=== PATIENT | male | born 1975 | race Caucasian/White ===

== ENCOUNTER → 2018-03-31 17:16 | Outpatient (CLI) | payer OTHER, SELFPAY ==
[2018-03-31 19:08] LABS: Hemoglobin A1C 11.1 % (0.0-7.0)
== END ==
PROVIDERS: Visit Provider Nurse Practitioner Family
DX: E11.21 Type 2 diabetes mellitus with diabetic nephropathy (principal)
CPT/HCPCS: 36415; 83036

== ENCOUNTER → 2018-07-07 07:58 | Outpatient (CLI) | payer OTHER, SELFPAY ==
--- NOTE | 2018-07-07 07:59 | CT_ITS ---
CT heart w calcium score INDICATION: Family history of heart disease, diabetes ITS.REASON: / ORDERING PHYSICIAN: Marvel Menjivar MD PATIENT AGE: 43 years COMPARISON: None TECHNIQUE: Axial images are obtained without contrast. Sagittal and coronal reformatted images are reviewed as well. All CT scans at the facility use one or more dose reduction, viz: automated exposure control, ma/kV adjustment per patient size (including targeted exams where dose is matched to indication, i.e. head), or iterative reconstruction technique. FINDINGS: Coronary artery calcium score is 5 indicating minimal plaque burden with low cardiovascular disease risk Incidental note is made of gallstones in the region of the infundibulum/neck of the gallbladder IMPRESSION: 1. Low cardiovascular disease risk with a coronary artery calcium score of 5 2. Cholelithiasis
== END ==
PROVIDERS: Family Provider Internal Medicine; PCP Nurse Practitioner Family; Visit Provider Internal Medicine
DX: I25.10 Atherosclerotic heart disease of native coronary artery without angina pectoris (principal); E11.9 Type 2 diabetes mellitus without complications; E78.5 Hyperlipidemia, unspecified
CPT/HCPCS: 75571

== ENCOUNTER → 2018-08-08 10:02 | Outpatient (POV) | payer OTHER, SELFPAY | PROVIDERS: Family Provider Internal Medicine; PCP Nurse Practitioner Family; Visit Provider Specialist | DX: R20.2 Paresthesia of skin (principal) | CPT/HCPCS: 95886; 95912 ==

== ENCOUNTER → 2018-08-10 14:26 | Outpatient (CLI) | payer OTHER, SELFPAY ==
--- NOTE | 2018-08-10 14:29 | XR_ITS ---
XR hip RT 2-3V w/pelvis HISTORY: Right hip pain ITS.REASON: right hip pain ORDERING PHYSICIAN: Edson Javier MD PATIENT AGE: 43 years COMPARISON: None FINDINGS: No fracture or dislocation is evident. No lytic or blastic changes. There are mild hypertrophic changes at the acetabulum with minimal sclerosis of the acetabulum and slight decrease in joint space superiorly consistent with mild osteoarthritic change. IMPRESSION: Mild osteoarthritic change of the right hip
--- NOTE | 2018-08-10 14:29 | XR_ITS ---
XR femur RT 2V CLINICAL INDICATION: ITS.REASON: right femur pain ORDERING PHYSICIAN: Edson Javier MD PATIENT AGE: 43 years Comparison: None FINDINGS: There are mild osteoarthritic changes of the right hip. The distal aspect of the femur have an unremarkable appearance. No fracture or dislocation. IMPRESSION: Mild osteoarthritic change of the right hip otherwise negative right
== END ==
PROVIDERS: PCP Nurse Practitioner Family; Visit Provider Orthopaedic Surgery
DX: M89.8X5 Other specified disorders of bone, thigh (principal); M25.551 Pain in right hip
CPT/HCPCS: 73502; 73552

== ENCOUNTER → 2018-08-12 13:02 | Outpatient (CLI) | payer OTHER, SELFPAY ==
[2018-08-12 16:04] LABS: Hemoglobin A1C 5.3 % (0.0-7.0)
[2018-08-12 16:07] LABS: Alanine Aminotransferase 40 U/L (12-78); Albumin Level 4.1 gm/dL (3.4-5.0); Albumin/Globulin Ratio 1.2 (1.1-1.8); Alkaline Phosphatase 67 U/L (46-116); Anion Gap 16.5 mEq/L (5-15); Aspartate Amino Transferase 22 U/L (15-37); Bilirubin,Total 0.4 mg/dL (0.2-1.0); Blood Urea Nitrogen 16 mg/dL (7-18); C-Reactive Protein 0.8 mg/L (0.0-0.9); Calcium 9.2 mg/dL (8.5-10.1); Carbon Dioxide 27 mmol/L (21.0-32.0); Chloride 102 mmol/L (98-107); Chol/HDL Ratio 7.4 (1-3.5); Cholesterol 259 mg/dL (140-200); Creatinine,Serum 0.92 mg/dL (0.70-1.30); Estimated Glomerular Filt Rate 90 ml/min (>60); GFR (African American) 109 ML/MIN (>60); Globulin 3.3 gm/dl (1.3-3.2); Glucose 86 mg/dL (74-106); HDL Cholesterol 35 mg/dL (27-67); LDL Cholesterol 195 mg/dL (0-130); Potassium 4.5 mmoL/L (3.5-5.1); Sodium 141 mmol/L (136-145); Total Protein,Serum 7.4 gm/dL (6.4-8.2); Triglycerides 147 mg/dL (30-200); VLDL Cholesterol 29 mg/dL (0-40)
[2018-08-12 16:43] LABS: Erythrocyte Sedimentation Rate 25 mm/hr (0-15)
[2018-08-15 04:07] LABS: Folate 4.4 ng/mL (>3.0); Vitamin B12 266 pg/mL (232-1245)
== END ==
PROVIDERS: Nurse Practitioner Family; PCP Internal Medicine Adolescent Medicine; Visit Provider Specialist
DX: R20.2 Paresthesia of skin (principal); E78.2 Mixed hyperlipidemia; E11.21 Type 2 diabetes mellitus with diabetic nephropathy; M25.50 Pain in unspecified joint
CPT/HCPCS: 36415; 80053; 80061; 82607; 82746; 83036; 83704; 85651; 86140

== ENCOUNTER 2018-08-29 07:54 | Outpatient (RCR) | payer OTHER, SELFPAY ==
--- NOTE | 2018-08-29 09:20 | HMH.PTOPEV ---
PT Outpatient Evaluation Rehab PT Outpatient Evaluation Start: 08/29/18 09:07 Freq: Status: Active Protocol: Document 08/29/18 09:09 SHELLY (Rec: 08/29/18 09:20 SHELLY [id number]) Electronically Signed By Aron Albert, PT 08/29/18 09:09 Outpatient Therapy Subjective History Subjective History Pt is 43 yowm who presents with c/o pain in the posterior right hip and buttock area intermittently x ~ 7 mos. Usually occurs when transfering sit to stand and lasts for only short time, but does experience some mild aching at rest less often. He reports gradually worsening condition and no injury prior to initial onset. He reports significant, intentional wt loss over the past yr due to diet changes. PMH: DM-II, HTN, HL Chief Complaint Pain Symptom Type Ache Throb Symptoms Relieved By Rest/Positioning Symptoms Aggravated By Physical Activity Prior Functional Limitations None Current Functional Limitations Sitting Walking Symptom Description Intermittent Level of pain today (0-10) 0 Pain scale - at its worst (0-10) 8 Hip/Knee Eval MMT bilateral Hip Flexion Strength Grade 5 Normal Hip Abduction Strength Grade 5 Normal Hip Adduction Strength Grade 5 Normal Hip Extension Strength Grade 5 Normal Gluteus Kleber Strength Grade 5 Normal Hip External Rotation Strength Grade 5 Normal Hip Internal Rotation Strength Grade 5 Normal Special Tests Hip Tank's Test Negative Left Negative Right Hip Josefina's Test Negative Left Negative Right Hip Scouring (Quadrant) Test Negative Left Negative Right Stanley Test Positive Hip Trendelenburg Test Negative Left Negative Right Outpatient Therapy Assessment Impairments Problems/Impairmments Subjective C/O Pain Impaired Self Care/Self Management Prognosis Rehab Potential Good Clinical Impression Consistent with Diagnosis Yes Short Term Goals Number of Weeks 4 Decrease Subjective C/O Pain Yes: 6/10 at worst Patient to be Ind w/ HEP
== END 2018-08-29 08:00 | disposition home or self-care (01) ==
LOC: PT 07:54
PROVIDERS: Visit Provider Orthopaedic Surgery
DX: M76.899 Other specified enthesopathies of unspecified lower limb, excluding foot (principal); M62.9 Disorder of muscle, unspecified; M25.551 Pain in right hip; G89.29 Other chronic pain
CPT/HCPCS: 97110; 97140; 97163

== ENCOUNTER → 2018-09-06 08:38 | Outpatient (POV) | payer OTHER, SELFPAY | PROVIDERS: Visit Provider Dermatology | DX: Z00.00 Encounter for general adult medical examination without abnormal findings (principal) ==

== ENCOUNTER → 2018-12-16 09:05 | Outpatient (CLI) | payer OTHER, SELFPAY ==
[2018-12-16 10:57] LABS: Alanine Aminotransferase 31 U/L (12-78); Albumin Level 4.2 gm/dL (3.4-5.0); Albumin/Globulin Ratio 1.7 (1.1-1.8); Alkaline Phosphatase 46 U/L (46-116); Aspartate Amino Transferase 14 U/L (15-37); Bilirubin,Total 0.4 mg/dL (0.2-1.0); Blood Urea Nitrogen 26 mg/dL (7-18); Calcium 9.2 mg/dL (8.5-10.1); Carbon Dioxide 26 mmol/L (21.0-32.0); Chloride 106 mmol/L (98-107); Chol/HDL Ratio 8.4 (1-3.5); Cholesterol 277 mg/dL (140-200); Creatinine,Serum 0.97 mg/dL (0.70-1.30); Estimated Glomerular Filt Rate 84 ml/min (>60); GFR (African American) 102 ML/MIN (>60); Globulin 2.5 gm/dl (1.3-3.2); Glucose 120 mg/dL (74-106); HDL Cholesterol 33 mg/dL (27-67); LDL Cholesterol 226 mg/dL (0-130); Sodium 142 mmol/L (136-145); Total Protein,Serum 6.7 gm/dL (6.4-8.2); Triglycerides 92 mg/dL (30-200); VLDL Cholesterol 18 mg/dL (0-40)
[2018-12-16 12:21] LABS: Hemoglobin A1C 5.5 % (0.0-7.0)
== END ==
PROVIDERS: Visit Provider Nurse Practitioner Family
DX: Z00.00 Encounter for general adult medical examination without abnormal findings (principal); E11.21 Type 2 diabetes mellitus with diabetic nephropathy; E78.2 Mixed hyperlipidemia
CPT/HCPCS: 36415; 80053; 80061; 83036

== ENCOUNTER 2020-07-30 12:08 | Emergency (ER) | payer OTHER, SELFPAY ==
[2020-07-30 12:15] VITALS: BP 153/99; PULSE 91; RESP 17; TEMP 36.7; O2SAT 99; BMI 38.9
--- NOTE | 2020-07-30 12:20 | HMH.EDUTC ---
[facility] Disposition Clinical Impression: Encounter for laboratory testing for COVID-19 virus Diarrhea Qualifiers: Diarrhea type: unspecified type Qualified Code(s): R19.7 - Diarrhea, unspecified Disposition: Home, Self-Care Condition on Discharge: Good Instructions: Diarrhea, Loperamide, Preventing the Spread of Coronavirus Discharge Instructions Additional Instructions: ? Drink extra fluids with and between meals. If you have difficulty drinking, try very small amounts of water or suck on ice chips. ? Avoid fruit juices, as these do not replace minerals and can actually increase diarrhea. ? Children and adults can use sports drinks to replenish electrolytes. Younger children and infants should use products formulated for children, like oral rehydration solutions. ? Eat food in small amounts and let your stomach recover. ? Get lots of rest. You may feel tired or weak. ? No greasy or fried foods for the next 24-48 hours BRAT diet Bananas Rice Apples and Speculator ? Make sure to drink plenty of liquids ? Return if needed ? Straight to ER if any life threatening symptoms ? You was given an outpatient order for diarrhea panel, please collect specimen and bring back to outpatient lab then call back to the [facility] or follow up with family doctor for results ? Follow up with family doctor in the next 48-72 hours if no improvement or any worsening of symptoms You was tested for today for COVID19 your test result should be back within the next 48-72 hours, call back to the [facility] to see if your test results are back and the result You was given a handout with instructions for Self Quarantine and Self isolation for while you wait on test results and what to do if they are positive Referrals: Ekaterina Lee APRN [Primary Care Provider] - As needed Forms: Work/School Release Medical Decision Making - Wiley Inquiry Pt receiving controlled substance: No Wiley was queried for this patient: No Vital Signs: 07/30/20 12:15 Temperature 98.0 F Temperature Source Oral Pulse Rate [Radial] 91 H Respiratory Rate 17 Blood Pressure [Right Arm] 153/99 H Blood Pressure Mean [Right Arm] 117 Blood Pressure Source [Right Arm] Automatic Cuff Blood Pressure Position [Right Arm] Sitting 02 Sat by Pulse Oximetry 99 Oxygen Delivery Method Room Air Orders (Tests/Meds): ORDERS Category Date Time Status Covid-19 Nasal PCR Sendout [facility] 09/22/20 12:18 Ordered Medical Decision Narrative: 1225 Lab notified of COVID test 1253 Lab still not completed COVID19 test called Lab again to inform them of patient awaiting COVID19 test no diarrhea since arrival [facility] HPI - General Stated complaint: diarrhea Time Seen by Provider: 07/30/20 12:20 Mode of Arrival: Ambulatory Source of Information: Patient Limitations: No Limitations Description of Symptoms (Recalled from Triage Doc. by RN): Diarrhea. States that he was at a wedding this weekend and was the only one wearing a mask. Doesn't know if he was exposed but would like to be tested. HEENT Symptoms (Recalled from RN notes): No Resp Symptoms (Recalled from RN notes): No Skin Symptoms (Recalled from RN notes): No MS Symptoms (Recalled from RN notes): No Functional Status (Recalled from RN notes): wnl - History of Present Illness Provider Complaint: Patient states that he was at a wedding this and was the only one wearing a mask States that he recently Started having diarrhea and wanted to get tested for COVID 19 Denies any fever, no chills, no sore throat or body aches. Denies vomiting - Related Data Home Medications Medication Instructions Recorded Confirmed No Known Home Medications 01/19/19 01/19/19 Allergies Allergy/AdvReac Type Severity Reaction Status Date / Time No Known Allergies Allergy Unverified 12/12/18 09:01 - Worker's Comp Is this a Worker's Comp case?: No [facility] History - Hepatitis A Screen Drug use history?: No High risk sexual behaviors?: No History of
[2020-07-30 12:54] VITALS: BP 153/99; PULSE 91; RESP 17; TEMP 36.7; O2SAT 99
[2020-07-31 15:52] LABS: Covid-19 Nasal PCR Sendout Lex Not Detected
== END 2020-07-30 13:08 | disposition home or self-care (01) ==
PROVIDERS: Emergency Provider Nurse Practitioner; PCP Nurse Practitioner Family
DX: R19.7 Diarrhea, unspecified (principal); Z20.828 Contact with and (suspected) exposure to other viral communicable diseases; I25.10 Atherosclerotic heart disease of native coronary artery without angina pectoris; E11.9 Type 2 diabetes mellitus without complications; K21.9 Gastro-esophageal reflux disease without esophagitis; I10 Essential (primary) hypertension; E78.5 Hyperlipidemia, unspecified
CPT/HCPCS: 99201; U0004

== ENCOUNTER → 2020-09-02 14:32 | Outpatient (CLI) | payer OTHER, SELFPAY | PROVIDERS: PCP Nurse Practitioner Family; Visit Provider Nurse Practitioner Family | DX: Z03.818 Encounter for observation for suspected exposure to other biological agents ruled out (principal) | CPT/HCPCS: U0003 ==

== ENCOUNTER → 2020-09-12 18:32 | Outpatient (CLI) | payer OTHER, SELFPAY ==
[2020-09-12 19:01] LABS: Creatinine,Urine Random 332 mg/dL (Not Estab.)
[2020-09-12 19:02] LABS: Microalbumin/Creatinine Ratio 33.8
[2020-09-12 20:14] LABS: Hemoglobin A1C 8.4 % (4.0-6.0)
== END ==
LOC: ER 18:33 → LAB 09-13 06:47 → LAB.DROPOF 09-13 14:31
PROVIDERS: PCP Nurse Practitioner Family; Visit Provider Nurse Practitioner Family
DX: E11.9 Type 2 diabetes mellitus without complications (principal); Z79.84 Long term (current) use of oral hypoglycemic drugs
CPT/HCPCS: 82043; 82570; 83036

== ENCOUNTER → 2021-08-08 09:31 | Outpatient (CLI) | payer OTHER, SELFPAY ==
[2021-08-08 10:03] LABS: Basophils # 0.1 K/mm3 (0-0.2); Basophils % 1.6 % (0.1-2.0); Eosinophils # 0.3 K/mm3 (0.0-0.4); Eosinophils % 4.7 % (0.1-12.0); Hematocrit 50.7 % (42.0-52.0); Hemoglobin 16.7 g/dL (14.1-18.0); Lymphocytes # 2.1 K/mm3 (0.7-4.5); Lymphocytes % 32.1 % (10-50); Mean Corpuscular HGB Conc 32.9 g/dL (31.8-35.4); Mean Corpuscular Hemoglobin 29.3 pg (27.0-31.2); Mean Corpuscular Volume 89.1 fl (80-94); Mean Platelet Volume 8.5 fl (7.4-10.4); Monocytes # 0.4 K/mm3 (0.1-1.0); Monocytes % 6.4 % (1.7-9.3); Neutrophils # 3.7 K/mm3 (1.8-7.8); Neutrophils % 55.1 % (37.0-80.0); Platelet Count 185 K/mm3 (142-424); Red Blood Count 5.69 M/mm3 (4.60-6.20); White Blood Count 6.7 K/mm3 (4.8-10.8)
[2021-08-08 10:16] LABS: Hemoglobin A1C 10.1 % (4.0-6.0)
[2021-08-08 10:19] LABS: Microalbumin/Creatinine Ratio 47.8
[2021-08-08 10:21] LABS: Creatinine,Urine Random 192 mg/dL (Not Estab.)
[2021-08-08 11:01] LABS: Alanine Aminotransferase 61 U/L (12-78); Albumin Level 4.1 g/dl (3.5-5.0); Albumin/Globulin Ratio 1.5 (1.1-1.8); Alkaline Phosphatase 50 U/L (38-126); Anion Gap 14.4 mEq/L (5-15); Aspartate Amino Transferase 32 U/L (17-59); Bilirubin,Total 0.7 mg/dl (0.2-1.3); Blood Urea Nitrogen 16 mg/dl (9-20); Calcium 9.3 mg/dl (8.4-10.2); Carbon Dioxide 25 mmol/L (22.0-30.0); Chloride 107 mmol/L (98-107); Chol/HDL Ratio 6.5 (1-3.5); Cholesterol 215 mg/dl (140-200); Estimated Glomerular Filt Rate 121 ml/min (>60); GFR (African American) 147 ML/MIN (>60); Globulin 2.7 g/dL (1.3-3.2); Glucose 235 mg/dl (74-100); HDL Cholesterol 33 mg/dl (40-60); Potassium 4.4 mmoL/L (3.5-5.1); Sodium 142 mmol/L (136-145); Total Protein,Serum 6.8 g/dl (6.3-8.2); Triglycerides 171 mg/dl (30-150); VLDL Cholesterol 34 mg/dL (0-40)
[2021-08-08 11:13] LABS: Direct LDL Cholesterol 142.86 mg/dL (100-129)
[2021-08-08 11:18] LABS: 25-OH Vitamin D, Total 27.1 ng/mL (30-100)
[2021-08-08 11:19] LABS: T4 (Thyroxine) 9.5 ug/dl (5.53-11.0)
[2021-08-08 11:32] LABS: Prostate Specific Ag Screen 0.5 ng/ml (0.0-4.0); Thyroid Stimulating Hormone 6.81 uIU/mL (0.465-4.68)
== END ==
PROVIDERS: Visit Provider Nurse Practitioner Family
DX: E11.9 Type 2 diabetes mellitus without complications (principal); I10 Essential (primary) hypertension; E78.5 Hyperlipidemia, unspecified; I25.10 Atherosclerotic heart disease of native coronary artery without angina pectoris; E55.9 Vitamin D deficiency, unspecified; Z12.5 Encounter for screening for malignant neoplasm of prostate; Z79.84 Long term (current) use of oral hypoglycemic drugs
CPT/HCPCS: 36415; 80053; 80061; 82043; 82306; 82570; 83036; 84436; 84443; 85025; G0103

== ENCOUNTER → 2021-11-27 10:13 | Outpatient (CLI) | payer OTHER, SELFPAY ==
[2021-11-27 10:50] LABS: Basophils # 0.1 K/mm3 (0-0.2); Basophils % 0.8 % (0.1-2.0); Eosinophils # 0.4 K/mm3 (0.0-0.4); Eosinophils % 5.5 % (0.1-12.0); Hematocrit 51.9 % (42.0-52.0); Hemoglobin 17.7 g/dL (14.1-18.0); Lymphocytes # 1.6 K/mm3 (0.7-4.5); Lymphocytes % 24.8 % (10-50); Mean Corpuscular Hemoglobin 30.4 pg (27.0-31.2); Mean Corpuscular Volume 89.3 fl (80-94); Mean Platelet Volume 9.3 fl (7.4-10.4); Monocytes # 0.4 K/mm3 (0.1-1.0); Neutrophils % 62.8 % (37.0-80.0); Platelet Count 209 K/mm3 (142-424); Red Blood Count 5.81 M/mm3 (4.60-6.20); Red Cell Distribution Width 14.8 % (11.5-17.5); White Blood Count 6.3 K/mm3 (4.8-10.8)
[2021-11-27 11:29] LABS: Hemoglobin A1C 6.8 % (4.0-6.0)
[2021-11-27 11:45] LABS: Alanine Aminotransferase 41 U/L (12-78); Albumin Level 4.8 g/dl (3.5-5.0); Albumin/Globulin Ratio 1.8 (1.1-1.8); Alkaline Phosphatase 42 U/L (38-126); Anion Gap 14.1 mEq/L (5-15); Aspartate Amino Transferase 35 U/L (17-59); Bilirubin,Total 0.5 mg/dl (0.2-1.3); Blood Urea Nitrogen 15 mg/dl (9-20); Calcium 9.6 mg/dl (8.4-10.2); Carbon Dioxide 29 mmol/L (22.0-30.0); Chloride 99 mmol/L (98-107); Chol/HDL Ratio 7.9 (1-3.5); Cholesterol 238 mg/dl (140-200); Estimated Glomerular Filt Rate 91 ml/min (>60); GFR (African American) 110 ML/MIN (>60); Globulin 2.6 g/dL (1.3-3.2); Glucose 143 mg/dl (74-100); HDL Cholesterol 30 mg/dl (40-60); Potassium 4.1 mmoL/L (3.5-5.1); Sodium 138 mmol/L (136-145); Total Protein,Serum 7.4 g/dl (6.3-8.2); Triglycerides 158 mg/dl (30-150); VLDL Cholesterol 32 mg/dL (0-40)
[2021-11-27 11:56] LABS: Direct LDL Cholesterol 191.12 mg/dL (100-129)
[2021-11-27 12:02] LABS: T4 (Thyroxine) 9.7 ug/dl (5.53-11.0)
[2021-11-27 12:15] LABS: Thyroid Stimulating Hormone 0.32 uIU/mL (0.465-4.68)
== END ==
PROVIDERS: PCP Nurse Practitioner Family; Visit Provider Nurse Practitioner Family
DX: E11.9 Type 2 diabetes mellitus without complications (principal); E78.5 Hyperlipidemia, unspecified; F41.9 Anxiety disorder, unspecified; Z79.84 Long term (current) use of oral hypoglycemic drugs
CPT/HCPCS: 36415; 80053; 80061; 82043; 83036; 84436; 84443; 85025

== ENCOUNTER → 2022-03-17 16:47 | Outpatient (CLI) | payer OTHER, SELFPAY ==
--- NOTE | 2022-03-17 16:55 | XR_ITS ---
PROCEDURE INFORMATION: Exam: XR Right Hip Exam date and time: 03/17/2022 5:05 PM Age: 46 years old Clinical indication: Pelvic pain; Additional info: Hip pain TECHNIQUE: Imaging protocol: XR Right hip. Views: 2 or 3 views hip with pelvis when performed. COMPARISON: CR HIPCMRT XR hip RT 2-3V w/pelvis 08/10/2018 5:37 PM FINDINGS: Bones/joints: Similar appearance of kjjm-ae-eexfmnhi narrowing of the hip joints. No evidence of an acute fracture or dislocation. Mild arthritic changes and periarticular sclerosis about the SI joints. Soft tissues: Unremarkable. IMPRESSION: No acute process.
== END ==
PROVIDERS: PCP Nurse Practitioner Family; Visit Provider Physician Assistant Surgical
DX: M25.551 Pain in right hip (principal)
CPT/HCPCS: 73502

== ENCOUNTER → 2023-03-22 08:50 | Outpatient (CLI) | payer OTHER, SELFPAY ==
[2023-03-22 09:39] LABS: Microscopic, Urine URINE MICROSCOPIC (MICROSCOPIC)
[2023-03-22 09:44] LABS: Appearance,Urine CLEAR (Clear); Blood, Urine Negative (Negative); Color,Urine YELLOW (Yellow); Glucose,Urine (UA) 2+ (Negative); Ketones,Urine Negative (Negative); Leukocyte Esterase,Urine Negative (Negative); Nitrate,Urine Negative (Negative); PH,Urine 5.5 (5.0-8.5); Protein,Urine TRACE (Negative); Specific Gravity, Urine >= 1.030 (1.005-1.030); Urobilinogen,Urine 0.2 EU/dl (0.2)
[2023-03-22 09:45] LABS: Basophils # 0.1 K/mm3 (0-0.2); Basophils % 0.8 % (0.1-2.0); Eosinophils # 0.3 K/mm3 (0.0-0.4); Eosinophils % 4.3 % (0.1-12.0); Hematocrit 52.2 % (42.0-52.0); Hemoglobin 17.4 g/dL (14.1-18.0); Lymphocytes % 26.5 % (10-50); Mean Corpuscular HGB Conc 33.3 g/dL (31.8-35.4); Mean Corpuscular Hemoglobin 28.9 pg (27.0-31.2); Mean Corpuscular Volume 86.8 fl (80-94); Mean Platelet Volume 9.2 fl (7.4-10.4); Monocytes # 0.5 K/mm3 (0.1-1.0); Monocytes % 5.9 % (1.7-9.3); Neutrophils # 4.8 K/mm3 (1.8-7.8); Neutrophils % 62.4 % (37.0-80.0); Platelet Count 192 K/mm3 (142-424); Red Blood Count 6.01 M/mm3 (4.60-6.20); Red Cell Distribution Width 14.4 % (11.5-17.5); White Blood Count 7.7 K/mm3 (4.8-10.8)
[2023-03-22 09:48] LABS: Bilirubin,Urine 1+ (Negative)
[2023-03-22 09:58] LABS: Bacteria,Urine Trace /lpf; Microalbumin/Creatinine Ratio 43.6; Squamous Epithelial Cell,Urine Occasional #/hpf (0-5); WBC,Urine Occasional #/hpf (0-3)
[2023-03-22 09:59] LABS: Creatinine,Urine Random 244 mg/dL (Not Estab.)
[2023-03-22 10:10] LABS: Hemoglobin A1C 11.2 % (4.0-6.0)
[2023-03-22 10:19] LABS: Alanine Aminotransferase 70 U/L (12-78); Albumin Level 4.3 g/dl (3.5-5.0); Albumin/Globulin Ratio 1.7 (1.1-1.8); Alkaline Phosphatase 85 U/L (38-126); Anion Gap 19.1 mEq/L (5-15); Aspartate Amino Transferase 43 U/L (17-59); Bilirubin,Total 0.7 mg/dl (0.2-1.3); Blood Urea Nitrogen 16 mg/dl (9-20); Calcium 9.1 mg/dl (8.4-10.2); Carbon Dioxide 24 mmol/L (22.0-30.0); Chloride 98 mmol/L (98-107); Chol/HDL Ratio 6.7 (1-3.5); Cholesterol 214 mg/dl (140-200); Estimated Glomerular Filt Rate 121 ml/min (>60); GFR (African American) 146 ML/MIN (>60); Globulin 2.5 g/dL (1.3-3.2); Glucose 299 mg/dl (74-100); HDL Cholesterol 32 mg/dl (40-60); Potassium 4.1 mmoL/L (3.5-5.1); Sodium 137 mmol/L (136-145); Total Protein,Serum 6.8 g/dl (6.3-8.2); Triglycerides 326 mg/dl (30-150); VLDL Cholesterol 65 mg/dL (0-40)
[2023-03-22 10:30] LABS: Direct LDL Cholesterol 137.39 mg/dL (100-129)
[2023-03-22 10:49] LABS: Prostate Specific Ag Screen 0.5 ng/ml (0.0-4.0); Thyroid Stimulating Hormone 3.11 uIU/mL (0.465-4.68)
== END ==
PROVIDERS: PCP Nurse Practitioner Family; Visit Provider Nurse Practitioner Family
DX: I25.10 Atherosclerotic heart disease of native coronary artery without angina pectoris (principal); E11.9 Type 2 diabetes mellitus without complications; E78.2 Mixed hyperlipidemia; I10 Essential (primary) hypertension; G47.33 Obstructive sleep apnea (adult) (pediatric); Z79.84 Long term (current) use of oral hypoglycemic drugs; Z12.5 Encounter for screening for malignant neoplasm of prostate
CPT/HCPCS: 80053; 80061; 81001; 82043; 82570; 83036; 84443; 85025; G0103

== ENCOUNTER → 2023-04-02 14:20 | Outpatient (CLI) | payer OTHER, SELFPAY ==
--- NOTE | 2023-04-02 14:28 | XR_ITS ---
FINAL REPORT CLINICAL HISTORY: rt shoulder pain FINDINGS: RIGHT SHOULDER: 3 views of the right shoulder were obtained. There is no acute fracture. There is mild elevation of the distal clavicle, and mild AC separation cannot be excluded. The joint spaces are intact. There is no soft tissue abnormality. IMPRESSION: Mild elevation of the distal clavicle, mild AC separation not excluded. Reviewed, Interpreted and Dictated by Quinn Ricci III, MD Transcribed by Chantel Mota Authenticated and [facility]
== END ==
PROVIDERS: PCP Nurse Practitioner Family; Visit Provider Orthopaedic Surgery
DX: M25.511 Pain in right shoulder (principal)
CPT/HCPCS: 73030

== ENCOUNTER → 2023-06-21 08:16 | Outpatient (CLI) | payer OTHER, SELFPAY ==
[2023-06-21 08:24] LABS: Microscopic, Urine URINE MICROSCOPIC (MICROSCOPIC)
[2023-06-21 08:59] LABS: Basophils % 0.5 % (0.1-2.0); Eosinophils # 0.3 K/mm3 (0.0-0.4); Eosinophils % 4.2 % (0.1-12.0); Hemoglobin 16.3 g/dL (14.1-18.0); Lymphocytes # 2.1 K/mm3 (0.7-4.5); Lymphocytes % 30.8 % (10-50); Mean Corpuscular HGB Conc 32.6 g/dL (31.8-35.4); Mean Corpuscular Hemoglobin 28.1 pg (27.0-31.2); Mean Corpuscular Volume 86.3 fl (80-94); Mean Platelet Volume 8.8 fl (7.4-10.4); Monocytes # 0.4 K/mm3 (0.1-1.0); Monocytes % 6.2 % (1.7-9.3); Neutrophils # 3.9 K/mm3 (1.8-7.8); Neutrophils % 58.2 % (37.0-80.0); Platelet Count 198 K/mm3 (142-424); Red Blood Count 5.79 M/mm3 (4.60-6.20); Red Cell Distribution Width 14.7 % (11.5-17.5); White Blood Count 6.8 K/mm3 (4.8-10.8)
[2023-06-21 09:14] LABS: Hemoglobin A1C 9.4 % (4.0-6.0)
[2023-06-21 09:27] LABS: Appearance,Urine CLEAR (Clear); Bilirubin,Urine Negative (Negative); Blood, Urine Negative (Negative); Color,Urine YELLOW (Yellow); Glucose,Urine (UA) 2+ (Negative); Ketones,Urine Negative (Negative); Leukocyte Esterase,Urine Negative (Negative); Nitrate,Urine Negative (Negative); PH,Urine 5.5 (5.0-8.5); Protein,Urine Negative (Negative); Specific Gravity, Urine >= 1.030 (1.005-1.030)
[2023-06-21 09:37] LABS: Alanine Aminotransferase 62 U/L (12-78); Albumin Level 4.1 g/dl (3.5-5.0); Albumin/Globulin Ratio 1.6 (1.1-1.8); Alkaline Phosphatase 52 U/L (38-126); Anion Gap 13.9 mEq/L (5-15); Aspartate Amino Transferase 33 U/L (17-59); Bilirubin,Total 0.5 mg/dl (0.2-1.3); Blood Urea Nitrogen 18 mg/dl (9-20); Calcium 9.2 mg/dl (8.4-10.2); Carbon Dioxide 23 mmol/L (22.0-30.0); Chloride 107 mmol/L (98-107); Cholesterol 197 mg/dl (140-200); Estimated Glomerular Filt Rate 90 ml/min (>60); GFR (African American) 109 ML/MIN (>60); Globulin 2.5 g/dL (1.3-3.2); Glucose 237 mg/dl (74-100); HDL Cholesterol 28 mg/dl (40-60); Potassium 3.9 mmoL/L (3.5-5.1); Sodium 140 mmol/L (136-145); Total Protein,Serum 6.6 g/dl (6.3-8.2); Triglycerides 185 mg/dl (30-150); VLDL Cholesterol 37 mg/dL (0-40)
[2023-06-21 09:40] LABS: Albumin Level 4.2 g/dl (3.5-5.0); Anion Gap 14.9 mEq/L (5-15); Blood Urea Nitrogen 18 mg/dl (9-20); Calcium 9.1 mg/dl (8.4-10.2); Carbon Dioxide 22 mmol/L (22.0-30.0); Chloride 107 mmol/L (98-107); Estimated Glomerular Filt Rate 90 ml/min (>60); GFR (African American) 109 ML/MIN (>60); Glucose 237 mg/dl (74-100); Potassium 3.9 mmoL/L (3.5-5.1); Sodium 140 mmol/L (136-145)
[2023-06-21 09:43] LABS: Microalbumin/Creatinine Ratio 19.1
[2023-06-21 09:47] LABS: Direct LDL Cholesterol 135.89 mg/dL (100-129)
[2023-06-21 09:48] LABS: Bacteria,Urine Trace /lpf; Squamous Epithelial Cell,Urine Occasional #/hpf (0-5); WBC,Urine Occasional #/hpf (0-3)
[2023-06-21 09:49] LABS: Intact Parathyroid Hormone 48.6 pg/mL (7.5-53.5)
[2023-06-21 09:50] LABS: Creatinine,Urine Random 226 mg/dL (Not Estab.)
[2023-06-29 19:03] LABS: 1,25 Dihydroxy Vitamin D 30 pg/mL (.); 1,25-Dihydroxy, Vitamin D-2 <10 pg/mL (.); 1,25-Dihydroxy, Vitamin D-3 30 pg/mL (.)
== END ==
PROVIDERS: PCP Internal Medicine Nephrology; Visit Provider Nurse Practitioner Family
DX: I10 Essential (primary) hypertension (principal); E11.29 Type 2 diabetes mellitus with other diabetic kidney complication; R80.9 Proteinuria, unspecified; E66.9 Obesity, unspecified; Z68.41 Body mass index [BMI] 40.0-44.9, adult; Z79.84 Long term (current) use of oral hypoglycemic drugs
CPT/HCPCS: 36415; 80053; 80061; 80069; 81001; 82043; 82306; 82570; 82652; 83036; 83970; 84155; 85025; 87086

== ENCOUNTER → 2023-06-21 13:51 | Outpatient (POV) | payer OTHER, SELFPAY | PROVIDERS: Visit Provider Internal Medicine Nephrology | DX: Z00.00 Encounter for general adult medical examination without abnormal findings (principal) ==

== ENCOUNTER → 2023-08-10 11:02 | Outpatient (CLI) | payer OTHER, SELFPAY ==
--- NOTE | 2023-08-10 11:06 | XR_ITS ---
FINAL REPORT CLINICAL HISTORY: foreign body FINDINGS: 2 views of the left foot were obtained. There is no acute fracture or dislocation. There are mild degenerative changes. Calcaneal spurs are present. There is no foreign body identified. IMPRESSION: No foreign body identified. Reviewed, Interpreted and Dictated by Quinn Ricci III, MD Transcribed by Tesfaye Pollock Authenticated and [facility]
== END ==
PROVIDERS: PCP Nurse Practitioner Family; Visit Provider Nurse Practitioner Family
DX: M79.672 Pain in left foot (principal); M79.5 Residual foreign body in soft tissue
CPT/HCPCS: 73620

== ENCOUNTER 2023-08-16 08:17 | Emergency (ER) | payer OTHER, SELFPAY ==
[2023-08-16] VITALS (17 sets, daily range): BP systolic 113–177; BP diastolic 82–120; PULSE 73–133; RESP 9–22; TEMP 36.8–36.9; O2SAT 90–99; BMI 39.9
--- NOTE | 2023-08-16 08:28 | ECG_ITS ---
APPROVED REPORT Exam: Resting ECG HR:139 bpm ECG Measurements Heart Rate 139 AXES QRSd 102 QRS -54 QT 299 T 70 QTc 380 Conclusion ATRIAL FLUTTER/TACHYCARDIA WITH RAPID VENTRICULAR RESPONSE LEFT ANTERIOR FASCICULAR BLOCK [QRS AXIS <= -45, QR IN I, RS IN II] POSSIBLE ANTERIOR MYOCARDIAL INFARCTION , PROBABLY OLD [30 ms Q WAVE IN V3/V4, OR R < 0.2 mV IN V4] ABNORMAL ECG UNCONFIRMED REPORT Electronically signed by : Sha Sena MD 08/16/2023 19:38:17
[2023-08-16 08:46] LABS: POC Glucose,Bedside 213 (70-110)
--- NOTE | 2023-08-16 08:58 | US_ITS ---
FINAL REPORT CLINICAL HISTORY: intermittent RUQ pain, diarrhea COMPARISON: None FINDINGS: Sonographic images of the right upper quadrant were obtained. The pancreas is partially obscured. The liver is fatty infiltrated. There is a 2.7 cm gallstone at the neck of the gallbladder. Gallbladder wall thickening is noted. The portal vein is at the upper limits of normal measuring 13 mm. There is no evidence of biliary ductal dilatation.The common duct measures 4mm. Limited images of the right kidney are unremarkable. IMPRESSION: 2.7 cm gallstone with gallbladder wall thickening. Cholecystitis is not excluded. Nuclear medicine hepatobiliary scan may be helpful. Reviewed, Interpreted and Dictated by Quinn Ricci III, MD Transcribed by Ban Mukherjee Authenticated and [facility]
--- NOTE | 2023-08-16 09:00 | HMH.EDGENADL ---
Discharge Plan Disposition Patient Disposition: Home, Self-Care Prescriptions Prescriptions: No Action losartan 50 mg tablet 50 mg PO DAILY Qty: 90 1RF metformin 500 mg tablet 500 mg PO BID Qty: 180 1RF (DME) Dexcom G6 Coal Picker Misc See Rx Instructions .Route Qty: 1 0RF Rx Instructions: As directed (DME) Dexcom G6 Sensor Device See Rx Instructions .Route Qty: 3 12RF Rx Instructions: As directed (DME) Dexcom G6 Transmitter Device See Rx Instructions .Route Qty: 1 12RF Rx Instructions: As directed semaglutide 1 mg/dose (4 mg/3 mL) pen injector 1 mg SQ WEEKLY Qty: 3 0RF aspirin [Adult Aspirin Regimen] 81 mg tablet,delayed release (DR/EC) 81 mg PO DAILY Qty: 90 3RF Referrals Follow up/Referrals: Quinn Christie MD [Staff Physician] - 7-14 days (call office in morning to schedule appt.) Silvia Barrios APRN [Primary Care Provider] - See instructions Activity Restrictions/Add. Instructions Additional Instructions/Restrictions: Call your family doctor to establish care for this visit to the emergency department and schedule follow-up within 48 hours to ensure improvement. If you have any worsening of your condition or any other concerning signs or symptoms, return to the emergency department or your primary care doctor for further evaluation. Dr. Christie with surgery information here. Call him to schedule appointment within the next week. In the morning of 08/17, you can either call cardiology at Dr. Menjivar's office, or walk-in to clinic Clinical Impressions Clinical Impression: Tachycardia, Abnormal gallbladder ultrasound, Adverse drug reaction Discharge ED Provider: Chaka Camilo General Adult HPI <Tera Mendez MD - Last Filed: 08/16/23 15:15> General Chief complaint: Arrhythmia/Palpitations Stated complaint: cold sweats, diarrhea Time Seen by Provider: 08/16/23 08:19 History of Present Illness HPI narrative: Patient is a 48-year-old male with past medical history of bsd-vzmfkex-gvjxpwkip diabetes, on Ozempic currently uptitrating who presents to the emergency department for evaluation of diarrhea and rapid heart rate. Patient states that he increased his Ozempic dose over the weekend and since then has developed 48 hours of diarrhea with rapid heart rate. Patient also had Tdap vaccine last week. No vomiting. He has had chronic intermittent right upper quadrant pain. Denies dysuria. No hematochezia. No other acute complaints at this time. Related Data Previous Rx's Medication Instructions Recorded aspirin 81 mg tablet,delayed 81 mg PO DAILY #90 tabs 08/11/21 release (Adult Aspirin Regimen) losartan 50 mg tablet 50 mg PO DAILY #90 tabs 03/22/23 metformin 500 mg tablet 500 mg PO BID #180 tabs 03/22/23 blood-glucose meter,continuous #1 ea 06/24/23 (Dexcom G6 Coal Picker) blood-glucose sensor (Dexcom G6 #3 ea 06/24/23 Sensor device) blood-glucose transmitter (Dexcom #1 ea 06/24/23 G6 Transmitter device) semaglutide 1 mg/dose (4 mg/3 mL) 1 mg (0.75 mL) SQ WEEKLY #3 mL 07/22/23 subcutaneous pen injector Allergies Allergy/AdvReac Type Severity Reaction Status Date / Time lisinopril AdvReac cough Verified 07/22/23 08:11 [facility] <Tera Mendez MD - Last Filed: 08/16/23 15:15> [facility] Disclaimer: The information contained in this section may have been updated after the patient was seen, as this information can be updated by other users. Medical History BMI 39.0-39.9,adult Diabetes Excessive cerumen in both ear canals Hyperlipidemia Hypertension Neuropathy Osteoarthritis Trochanteric bursitis of right hip Surgical History History of colonoscopy Family History Father Diabetes Mother Brother Brother Coronary artery disease Mother Lewy body dementia Mother
[2023-08-16 09:08] LABS: Coronavirus 19, PCR Not Detected (NotDetected); Influenza A, PCR Not Detected (NotDetected); Influenza B, PCR Not Detected (NotDetected)
[2023-08-16 09:11] LABS: Basophils % 0.3 % (0.1-2.0); Eosinophils # 0.3 K/mm3 (0.0-0.4); Eosinophils % 3.2 % (0.1-12.0); Lymphocytes # 1.9 K/mm3 (0.7-4.5); Lymphocytes % 21.2 % (10-50); Mean Corpuscular HGB Conc 32.7 g/dL (31.8-35.4); Mean Corpuscular Hemoglobin 28.5 pg (27.0-31.2); Mean Corpuscular Volume 86.9 fl (80-94); Mean Platelet Volume 8.9 fl (7.4-10.4); Monocytes # 0.7 K/mm3 (0.1-1.0); Monocytes % 7.8 % (1.7-9.3); Neutrophils % 67.5 % (37.0-80.0); Platelet Count 261 K/mm3 (142-424); Red Blood Count 6.43 M/mm3 (4.60-6.20); Red Cell Distribution Width 14.2 % (11.5-17.5); White Blood Count 8.8 K/mm3 (4.8-10.8)
[2023-08-16 09:12] LABS: Alanine Aminotransferase 49 U/L (12-78); Albumin Level 4.5 g/dl (3.5-5.0); Albumin/Globulin Ratio 1.3 (1.1-1.8); Alkaline Phosphatase 55 U/L (38-126); Anion Gap 16.8 mEq/L (5-15); Aspartate Amino Transferase 33 U/L (17-59); Blood Urea Nitrogen 11 mg/dl (9-20); Calcium 9.2 mg/dl (8.4-10.2); Carbon Dioxide 24 mmol/L (22.0-30.0); Chloride 103 mmol/L (98-107); Creatinine Clearance Estimated 185 mL/min (50-200); Estimated Glomerular Filt Rate 80 ml/min (>60); GFR (African American) 97 ML/MIN (>60); Globulin 3.4 g/dL (1.3-3.2); Glucose 230 mg/dl (74-100); Lipase 83 U/L (23-300); Potassium 3.8 mmoL/L (3.5-5.1); Sodium 140 mmol/L (136-145); Total Protein,Serum 7.9 g/dl (6.3-8.2)
[2023-08-16 09:18] LABS: Hematocrit 55.9 % (42.0-52.0); Hemoglobin 18.3 g/dL (14.1-18.0)
--- NOTE | 2023-08-16 10:00 | PC.NURSE ---
Pt is gone to ct scans
[2023-08-16 10:04] LABS: Magnesium 1.5 mg/dl (1.6-2.3)
--- NOTE | 2023-08-16 10:25 | PC.NURSE ---
pt has returned from u/s
--- NOTE | 2023-08-16 11:03 | PC.NURSE ---
Rounded on pt. No needs or complaints voiced at this time. Call light within reach.
--- NOTE | 2023-08-16 11:33 | ECG_ITS ---
APPROVED REPORT Exam: Resting ECG HR:109 bpm ECG Measurements Heart Rate 109 AXES IN 199 P 15 QRSd 104 QRS -63 QT 328 T 64 QTc 392 Conclusion SINUS TACHYCARDIA LOW QRS VOLTAGE IN PRECORDIAL LEADS [QRS DEFLECTION < 1.0 mV IN CHEST LEADS] LEFT ANTERIOR FASCICULAR BLOCK with LAD Late R wave progression ABNORMAL ECG UNCONFIRMED REPORT Electronically signed by : Sha Sena MD 08/16/2023 19:37:18
--- NOTE | 2023-08-16 11:34 | PC.NURSE ---
Dr. Mendez at BS to update pt on POC
--- NOTE | 2023-08-16 11:37 | PC.NURSE ---
MESSAGE LEFT WITH BLACK AT DR. GO'S OFFICE FOR RETURN CALL
--- NOTE | 2023-08-16 12:08 | PC.NURSE ---
Dr. Vanessa Christie for gen surg consult
--- NOTE | 2023-08-16 12:23 | PC.NURSE ---
Dr. Christie at BS to evaluate pt
--- NOTE | 2023-08-16 12:29 | PC.NURSE ---
pt ambulated to restroom with no assistance
--- NOTE | 2023-08-16 12:31 | PC.NURSE ---
Dr. Christie spoke with Dr. Mendez and advised Pt can follow up outpatient for gallbladder.
--- NOTE | 2023-08-16 12:44 | EXP.SURG.CON ---
History of Present Illness *Admission Date: 08/16/23 *Reason for visit:: Gallstone *History of present illness: Patient is a 48-year-old male with history of aka-hpwsjil-tujxsoomw diabetes. He is on Ozempic and has recently been up titrating the dosage. Over the past several days he has had some significant diarrhea and noted tachycardia. He has had some vague chronic self-limited right upper quadrant pain. Due to symptoms of tachycardia he had presented to the emergency department today where he was seen and evaluated. He underwent thorough work-up. CBC, electrolytes, and liver function tests are unremarkable. He had persistent tachycardia. He underwent gallbladder ultrasound which revealed 2.7 cm gallstone with gallbladder wall thickening with no evidence of any biliary ductal dilatation. Due to these findings and patient's symptomatology surgery was contacted for recommendations and consultation for [facility] Disclaimer: The information contained in this section may have been updated after the patient was seen, as this information can be updated by other users. Medical History BMI 39.0-39.9,adult Diabetes 2013 Excessive cerumen in both ear canals Hyperlipidemia Hypertension 2013 Neuropathy Osteoarthritis Bilateral hips, diagnosed 03/2022 Trochanteric bursitis of right hip 2021 Surgical History History of colonoscopy 2018 with polypectomy, repeat every [address] Gordon Family History Father , age 59 Cancer colon Mother Coronary artery disease Lewy body dementia Diabetes Brother Diabetes Brother Diabetes Social History Smoking Status: Never smoker alcohol intake: never counseling provided: none substance use type: denies use current occupational status: employed Travel in the last 8 weeks: None household members: spouse and significant other housing: house caffeine: Yes Review of Systems Review of Systems Review of systems:: pertinent systems reviewed and negative unless documented below *Gastrointestinal Gastrointestinal: Reports loose stools Meds Home Medications and Allergies Home Medications Medication Instructions Recorded Confirmed Type aspirin 81 mg tablet,delayed 81 mg PO DAILY #90 tabs 08/11/21 07/22/23 Rx release (Adult Aspirin Regimen) losartan 50 mg tablet 50 mg PO DAILY #90 tabs 03/22/23 07/22/23 Rx metformin 500 mg tablet 500 mg PO BID #180 tabs 03/22/23 07/22/23 Rx blood-glucose meter,continuous #1 ea 06/24/23 07/22/23 Rx (Dexcom G6 Mattress Filling Machine Tender) blood-glucose sensor (Dexcom G6 #3 ea 06/24/23 07/22/23 Rx Sensor device) blood-glucose transmitter (Dexcom #1 ea 06/24/23 07/22/23 Rx G6 Transmitter device) semaglutide 1 mg/dose (4 mg/3 mL) 1 mg (0.75 mL) SQ WEEKLY #3 mL 07/22/23 07/22/23 Rx subcutaneous pen injector New Prescriptions to Start Prescriptions: Allergies Allergy/AdvReac Type Severity Reaction Status Date / Time lisinopril AdvReac cough Verified 07/22/23 08:11 Exam (Inpt) Vital signs and Labs for Last 24 Hours: Temp Pulse Resp BP Pulse Ox O2 Del Method 98.2 F 116 H 17 138/95 H 95 Room Air 08/16/23 08:52 08/16/23 11:30 08/16/23 11:30 08/16/23 11:30 08/16/23 11:30 08/16/23 10:30 Laboratory Results - last 24 hr 08/16/23 08:37: WBC 8.8, RBC 6.43 H, Hgb 18.3 H, Hct 55.9 H, MCV 86.9, MCH 28.5, MCHC 32.7, RDW 14.2, Plt Count 261, MPV 8.9, Neut % (Auto) 67.5, Lymph % (Auto) 21.2, [place] % (Auto) 7.8, Eos % (Auto) 3.2, Baso % (Auto) 0.3, Neut # (Auto) 6.0, Lymph # (Auto) 1.9, [place] # (Auto) 0.7, Eos # (Auto) 0.3, Baso # (Auto) 0.0, Sodium 140, Potassium 3.8, Chloride 103, Carbon Dioxide 24, Anion Gap 16.8 H, BUN 11, Creatinine 1.00, Estimated Creat Clear 185, Estimated GFR
--- NOTE | 2023-08-16 13:10 | PC.NURSE ---
wanted to know if pt states any pain, asked pt he said there is no pain resting or when ambulating let aware
--- NOTE | 2023-08-16 13:10 | PC.NURSE ---
Dr. Mendez advised to have pt begin drinking plenty of water
[2023-08-16 14:12] LABS: D-Dimer 1.06 ug/mL (0.0-0.5)
--- NOTE | 2023-08-16 14:12 | PC.NURSE ---
Dr. Mendez states ok to get cardiac consult. Ron DORSEY still in ER and notified of consult order
--- NOTE | 2023-08-16 14:30 | PC.NURSE ---
ANA CRISTINA KING FROM CARDIOLOGY AT BEDSIDE
--- NOTE | 2023-08-16 14:32 | CT_ITS ---
FINAL REPORT TECHNIQUE: Postcontrast axial images of the chest were performed in a CTA protocol. This study was performed with techniques to keep radiation doses as low as reasonably achievable, (ALARA). Individualized dose reduction technique using automated exposure control or adjustment of mA and/or kV according to the patient's size were employed. CLINICAL HISTORY: elevated dimer/tachy FINDINGS: Motion artifact seen on many sequences. Lower lobar branches are obscured. There is no pulmonary embolism identified. The heart is normal in size. No adenopathy is identified. No pleural or pericardial effusion is identified. The thoracic aorta is normal in caliber with no focal aneurysm or dissection identified. There are patchy, pulmonary groundglass opacities favored represent edema over pneumonia. The images of the upper abdomen demonstrate fatty infiltration of the liver. There is a large gallstone with moderate distention of the gallbladder. IMPRESSION: No evidence for PE on this exam. Large gallstone with moderate gallbladder distention. Patchy pulmonary groundglass opacities, favor edema over pneumonia. Reviewed, Interpreted and Dictated by Quinn Ricci III, MD Transcribed by Li Belcher Authenticated and [facility]
--- NOTE | 2023-08-16 14:34 | PC.NURSE ---
pt ambulating to rest room with isaac pole
--- NOTE | 2023-08-16 14:49 | EXP.CARD.CON ---
History of Present Illness History of Present Illness Consult date: 08/16/23 Requesting physician: Ziyad Bailey Chief complaint: Tachycardia, abdominal pain Additional Medical History:: 1. Nonobstructive coronary artery disease, 06/2017 A. Left heart catheterization: ANGIOGRAPHIC RESULTS: 1. The left main artery normal 2. The left anterior descending artery has mild luminal irregularities in the mid LAD along with the proximal to mid large first diagonal artery 3. The circumflex artery is a very large dominant vessel and normal 4. The right coronary artery is a vestigial vessel and normal 5. The LOOMIS ventriculogram reveals normal ejection fraction estimated at 65% 6. The left ventricular end-diastolic pressure less than 10 mmHg IMPRESSION: 1. Mild disease in the mid LAD and first diagonal artery 2. Normal ejection fraction 3. Normal left ventricular end-diastolic pressure PLAN: 1. Patient's chest pain is noncardiac 2. LDL less than 70 3. Baby aspirin 4. Aggressive risk factor modification 2. Hypertension 3. Type 2 diabetes mellitus 4. Abnormal EKG 5. Hyperlipidemia History of present illness: 48-year-old white male presented to the emergency department today for increasing discomfort in the abdomen and not feeling well. He relates he relates 3 to 4 days of intermittent diarrhea after receiving a Tdap booster last week and also increasing his dose of Ozempic. He denies any fever but has noted some chills over the last couple of days as well. No vomiting but he has had some chronic intermittent right upper quadrant pain. Patient has been given 2 L of fluid in the ER and still has a tachycardic rate and of around 115 to 120 bpm for which cardiology has been consulted. Patient denies any chest pain, pressure or tightness. Initial EKG was read as atrial flutter at 139 bpm with second EKG read as sinus tachycardia at 109 bpm. D-dimer has been inconclusive and the patient will be going for CT of the chest to rule out pulmonary embolus. Abdominal ultrasound shows 2.7 cm gallstone with gallbladder wall thickening with the possibility of cholecystitis. Per the ER doctor, surgery has been consulted but do not feel that it is a surgical issue at this time. [facility] Disclaimer: The information contained in this section may have been updated after the patient was seen, as this information can be updated by other users. Medical History BMI 39.0-39.9,adult Diabetes 2013 Excessive cerumen in both ear canals Hyperlipidemia Hypertension 2013 Neuropathy Osteoarthritis Bilateral hips, diagnosed 03/2022 Trochanteric bursitis of right hip 2021 Surgical History History of colonoscopy 2018 with polypectomy, repeat every 3 to [address] Gordon Family History Father , age 59 Cancer colon Mother Coronary artery disease Lewy body dementia Diabetes Brother Diabetes Brother Diabetes Social History Smoking Status: Never smoker alcohol intake: never counseling provided: none substance use type: denies use current occupational status: employed Travel in the last 8 weeks: None household members: spouse and significant other housing: house caffeine: Yes Review of Systems Review of Systems Review of systems:: pertinent systems reviewed and negative unless documented below *Cardiovascular Cardiovascular: Denies chest pain, Reports dyspnea on exertion and Reports palpitations *Respiratory Respiratory: Reports dyspnea on exertion *Gastrointestinal Gastrointestinal: Reports as per HPI, Reports abdominal pain, Reports belching, Reports bloating, Reports change in bowel habits and Reports loose stools Endocrine Endocrine: Reports palpi
--- NOTE | 2023-08-16 15:07 | CA_ITS ---
APPROVED REPORT EXAM: Comprehensive 2D, Doppler, and color-flow Echocardiogram Mixer Operator: Alycia Grubbs RVT Ht: 6 ft 3 in Wt: 320lbs BSA: 2.68 BP: 125/95 mmHg Indications: TACHYCARDIA,CAD,HTN,OBESITY,DM,HLD TDS-PT BODY HABITUS BEST EXAM POSSIBLE 2D Dimensions LVOT 2.78 cm (M/F) 1.5-2.5 LA Volume 31.40 mL LA Volume Index 11.72 mL/m2 (M/F) 16-34 M-Mode Dimensions RVDd 2.44 cm (0.9-2.6) LA Diam 3.97 cm (1.9-4.0) LVDd 3.90 cm (3.5-5.7) Ao Diam 3.90 cm (2.0-3.7) LVDs 2.68 cm (3.5-5.7) IVSd 1.69 cm (0.6-1.1) PWd 1.13 cm (0.6-1.1) EF (Teich) 59.80% FS 31.30% EDV (Teich) 65.90 mL ESV (Teich) 26.50 mL LV Diastology E Decel Time 97.00 (160-240 msec) E/A Ratio 6.2 MED E' 6.60 (< 7 cm/sec) E'/MED E' Ratio 15.88 (>14) LAT E' 6.10 (<10 cm/sec) E/LAT E' Ratio 17.18 (>14) Aortic Valve AO Peak GR. 2.60 mmHg Mitral Valve MV E Max Nikko. 105.00 (40-130 cm/s) MV A Velocity 17.00 (40-130 cm/s) E/A Ratio 6.31 MV Decel. Time 97.00 (160-240 ms) MV PHT 28.00 ms Pulmonary Valve PV Peak Velocity 86.00 (50-150 cm/s) Left Ventricle The left ventricle is normal size. Left ventricular systolic function is mildly decreased. There is increased LV wall thickness (IVSd = 1.4-1.5 cm) There is mild global hypokinesis present. The bases appear hypokinetic relative to the apex. Diastolic function is indeterminate. LVEF is 45%. Right Ventricle The right ventricle is normal size. The right ventricular systolic function is normal. Atria The left atrium size is normal. The right atrium size is normal. There is no Doppler evidence of interatrial shunt. Aortic Valve The aortic valve opens well. There is no aortic valvular stenosis. Trace aortic regurgitation. Mitral Valve The mitral valve is normal in structure. No evidence of mitral valve stenosis. Trace mitral regurgitation. Tricuspid Valve The tricuspid valve leaflets are thin and pliable. Trace tricuspid regurgitation. There is insufficient TR jet to estimate RVSP. Pulmonic Valve The pulmonary valve is normal in structure. Trace pulmonic regurgitation. Great Vessels The aortic root is normal in size. The ascending aorta is normal in size. IVC is normal in size and collapses >50% with inspiration. Pericardium There is no pericardial effusion. Other Information Study Quality: Technically Difficult Conclusion This was a technically difficult study due to poor acoustic windows. Mild reduction in global LV systolic function (LVEF 45%). Increased LV wall thickness (IVSd 1.4-1.5 cm). No significant valvular stenosis or regurgitation. Due to reduced LVEF and increased LV wall thickness, further evaluation for infiltrative cardiomyopathy is suggested with PYP scan, cardiac MRI (amyloidosis protocol), and amyloidosis blood work. Electronically signed by : Ann Marie Montiel MD 08/16/2023 22:40:36
--- NOTE | 2023-08-16 17:10 | PC.NURSE ---
Dr. Bailey at bedside
[2023-08-16 17:34] LABS: Troponin I < 0.01 ng/ml (0.00-0.034)
--- NOTE | 2023-08-16 17:47 | EXP.MED.CON ---
History of Present Illness *Admission Date: 08/16/23 *Reason for visit:: diarrhea, fast heart rate *History of present illness: Patient is a 48-year-old male with history of mty-gtfwhqj-zhbyuizfj diabetes. He is on Ozempic and has recently been up titrating the dosage. Over the past several days he has had some significant diarrhea and noted tachycardia. He has had some vague chronic self-limited right upper quadrant pain. Due to symptoms of tachycardia he had presented to the emergency department today where he was seen and evaluated. He underwent thorough work-up. CBC, electrolytes, and liver function tests are unremarkable. He had persistent tachycardia. He underwent gallbladder ultrasound which revealed 2.7 cm gallstone with gallbladder wall thickening with no evidence of any biliary ductal dilatation. Due to these findings and patient's symptomatology surgery was contacted for recommendations and consultation for possible gallbladder disease. Ultrasound obtained showing no obstruction or cholecystitis. Cardiology consulted for tachycardia. Currently in sinus tach. Recommend outpatient follow-up. Medicine consulted for evaluation for possible admission for observation and IV fluid hydration. On evaluation of patient, he is asymptomatic for abdominal pain at this time. Negative Patterson sign. Stable on room air. Still has sinus tach above 100 but in no acute distress otherwise. Extensive discussion about possible treatment options. Tolerating good p.o. fluid intake. Still having watery diarrhea but no blood in stool. No fever or chills at this time. [facility] Disclaimer: The information contained in this section may have been updated after the patient was seen, as this information can be updated by other users. Medical History BMI 39.0-39.9,adult Diabetes Excessive cerumen in both ear canals Hyperlipidemia Hypertension Neuropathy Osteoarthritis Trochanteric bursitis of right hip Surgical History History of colonoscopy Family History Father Diabetes Mother Brother Brother Coronary artery disease Mother Lewy body dementia Mother Cancer Father Social History Smoking Status: Never smoker alcohol intake: never counseling provided: none substance use type: denies use current occupational status: employed Travel in the last 8 weeks: None household members: spouse and significant other housing: house caffeine: Yes Review of Systems Review of Systems Review of systems (narrative): 14 point review of systems performed, pertinent positives and negatives as per HPI Exam Data for Last 24 hours Vital signs and Labs for Last 24 Hours: Temp Pulse Resp BP Pulse Ox O2 Del Method 98.2 F 117 H 14 117/85 96 Room Air 08/16/23 08:52 08/16/23 17:00 08/16/23 17:00 08/16/23 17:00 08/16/23 17:00 08/16/23 10:30 Laboratory Results - last 24 hr 08/16/23 08:37: WBC 8.8, RBC 6.43 H, Hgb 18.3 H, Hct 55.9 H, MCV 86.9, MCH 28.5, MCHC 32.7, RDW 14.2, Plt Count 261, MPV 8.9, Neut % (Auto) 67.5, Lymph % (Auto) 21.2, [place] % (Auto) 7.8, Eos % (Auto) 3.2, Baso % (Auto) 0.3, Neut # (Auto) 6.0, Lymph # (Auto) 1.9, [place] # (Auto) 0.7, Eos # (Auto) 0.3, Baso # (Auto) 0.0, D-Dimer 1.06 H, Sodium 140, Potassium 3.8, Chloride 103, Carbon Dioxide 24, Anion Gap 16.8 H, BUN 11, Creatinine 1.00, Estimated Creat Clear 185, Estimated GFR 80, Est GFR ( Amer) 97, Glucose 230 H, Calcium 9.2, Magnesium 1.5 L, Total Bilirubin 1.0, AST 33, ALT 49, Alkaline Phosphatase 55, Total Protein 7.9, Albumin 4.5, Globulin 3.4 H, Albumin/Globulin Ratio 1.3, Lipase 83 08/16/23 08:39: POC Glucose 213 H 08/16/23 09:04: SARS-CoV-2 (PCR) Not detected, Influenza A Untype (PCR) Not detected, Influenza Type B (PCR) Not detected
== END 2023-08-16 18:01 | disposition home or self-care (01) ==
PROVIDERS: Emergency Medicine; Emergency Provider Emergency Medicine; PCP Nurse Practitioner Family
DX: K80.20 Calculus of gallbladder without cholecystitis without obstruction (principal); R00.0 Tachycardia, unspecified; E86.0 Dehydration; R19.7 Diarrhea, unspecified; Z68.41 Body mass index [BMI] 40.0-44.9, adult; E66.01 Morbid (severe) obesity due to excess calories; I25.10 Atherosclerotic heart disease of native coronary artery without angina pectoris; E78.5 Hyperlipidemia, unspecified; I11.9 Hypertensive heart disease without heart failure; Z79.84 Long term (current) use of oral hypoglycemic drugs; E11.65 Type 2 diabetes mellitus with hyperglycemia
CPT/HCPCS: 71275; 76705; 80053; 82962; 83690; 83735; 84484; 85025; 85378; 87636; 93005; 93306; 96360; 96361; 99285; Q9967

== ENCOUNTER → 2023-08-17 11:55 | Outpatient (CLI) | payer OTHER, SELFPAY ==
[2023-08-17 14:57] LABS: Total Protein,Serum 6.6 g/dl (6.3-8.2)
[2023-08-17 15:13] LABS: T4 (Thyroxine) 11.9 ug/dl (5.53-11.0); Triiodothryronine (T3) Uptake 34 % (23.5-40.5)
[2023-08-17 15:27] LABS: Thyroid Stimulating Hormone 2.08 uIU/mL (0.465-4.68)
[2023-08-19 16:04] LABS: Immunoglobulin A, Qn 201 mg/dL (90-386); Immunoglobulin G, Qn 700 mg/dL (603-1613); Immunoglobulin M, Qn 32 mg/dL (20-172)
[2023-08-23 08:59] LABS: Free Kappa Lt Chains 17.6
[2023-08-23 09:00] LABS: Free Lambda Lt Chains 18
== END ==
PROVIDERS: PCP Nurse Practitioner Family; Visit Provider Internal Medicine
DX: I10 Essential (primary) hypertension (principal); R00.0 Tachycardia, unspecified; R19.7 Diarrhea, unspecified; E66.01 Morbid (severe) obesity due to excess calories; Z68.39 Body mass index [BMI] 39.0-39.9, adult
CPT/HCPCS: 36415; 82784; 83883; 84155; 84436; 84443; 84479; 86334; 93270

== ENCOUNTER → 2023-08-23 08:10 | Outpatient (CLI) | payer OTHER, SELFPAY ==
--- NOTE | 2023-08-23 08:16 | NM_ITS ---
APPROVED REPORT Commercial Marketing Specialist: Procedure: 99mTc-PYP Cardiac Amyloidosis Imaging Clinical Indication: Syncopal episodes, increased LV wall thickness Protocol: The patient received 24.6 mCi 99mTc-PYP intravenously. Planar and SPECT imaging was performed approximately 3 hours post injection. Planar images included anterior, left lateral and MANDI-45 projections. Findings: Visual interpretation: Planar and SPECT images were reviewed The overall quality of the study was good. Semi quantitative SPECT findings showed a grade 1. Planar imaging for heart to contralateral ratio was 1.1 (normal<1.5, equivocal=1.2-1.4, abnormal>1.5). Impression: 1. Overall, the quality of the study was good. 2. Semi quantitative SPECT findings showed grade 1. 3. Overall interpretation of the findings is not suggestive of ATTR amyloidosis. This study and report were reviewed and signed by Godfrey Montiel MD (business manager). Conclusion Electronically signed by : Ann Marie Montiel MD 09/15/2023 12:03:13
[2023-08-25 13:43] LABS: Albumin, U 48.7 % (.); Alpha-2-Globulin, U 13.2 % (.); Beta Globulin, U 23.3 % (.); Gamma Globulin, U 9.7 % (.); M-Spike, % Not Observed % (Not Observed); Prot,24hr calculated 130 mg/24 hr (30-150); Protein,Total,Urine 7.2 mg/dL (Not Estab.)
== END ==
PROVIDERS: PCP Nurse Practitioner Family; Visit Provider Internal Medicine
DX: R00.0 Tachycardia, unspecified (principal); I10 Essential (primary) hypertension; R19.7 Diarrhea, unspecified; E66.01 Morbid (severe) obesity due to excess calories; Z68.41 Body mass index [BMI] 40.0-44.9, adult
CPT/HCPCS: 78803; 84156; 84166

== ENCOUNTER 2023-09-06 09:28 | Day surgery (SDC) | payer OTHER, SELFPAY ==
[2023-09-03 09:51] VITALS: BMI 40.6
[2023-09-06] VITALS (12 sets, daily range): BP systolic 109–171; BP diastolic 69–105; PULSE 81–99; RESP 16–21; TEMP 36.2–36.5; O2SAT 91–99
[2023-09-06 10:15] LABS: POC Glucose,Bedside 224 (70-110)
--- NOTE | 2023-09-06 10:33 | P.PNANES_ITS ---
[facility] Disclaimer: The information contained in this section may have been updated after the patient was seen, as this information can be updated by other users. Medical History Adverse drug reaction BMI 39.0-39.9,adult Dehydration Diabetes Diarrhea Excessive cerumen in both ear canals Foreign body (FB) in soft tissue Hyperlipidemia Hypertension Neuropathy Osteoarthritis Trochanteric bursitis of right hip Surgical History History of colonoscopy Family History Father Cancer Mother Coronary artery disease Lewy body dementia Diabetes Brother Diabetes Brother Diabetes Social History Smoking Status: Never smoker alcohol intake: never counseling provided: none substance use type: denies use current occupational status: employed Travel in the last 8 weeks: Inside the [place] household members: spouse and significant other housing: house caffeine: Yes [facility] Anesthesia Checklist Patient Identification Patient Identification: Arm Band and Verbal (Name & ) Structural Data Admitted From: Home Planned Operative Procedure/s: lap cholecystectomy Consent for Planned Operative Procedure(s) Verified: Yes NPO Status Verified Time NPO: 00:00 Additional verifications Anesthesia Reactions: No Hx Blood Transfusions: No Blood Transfusion Reaction: No Airway Assessment Mallampati Score:: Class III C-Spine Mobility Assessed: Yes TMJ Mobility Assessed: Yes Dentition: Good Dentition Neurological Assessment Level of Consciousness: Awake Hx Seizures: No Numbness or tingling in extremities: No Anesthesia Plan Anesthesia Risk discussed: Yes Anesthesia Plan: Verified ASA Class: III Anesthesia Type: General
--- NOTE | 2023-09-06 13:15 | EXP.OP.NOTE ---
Date of procedure: 09/06/23 Pre-op Diagnosis:: Symptomatic gallstones Post-op Diagnosis:: Calculus cholecystitis Procedure performed:: Laparoscopic cholecystectomy Surgeon:: Quinn Christie MD ELECTRIC TRAIN DRIVER:: Matthieu Duran Anesthesia: GETA Estimated blood loss (mL): 30 Clinical Note:: Patient presents for cholecystectomy. He is a 48-year-old male with history of tyv-rrcxybt-kwdelxxun diabetes. He is on Ozempic and has recently been up titrating the dosage. He had some significant diarrhea and noted tachycardia. He has had some vague chronic self-limited right upper quadrant pain. Due to symptoms of tachycardia he had presented to the emergency department on 08/16/2023 where he was seen and evaluated. He underwent thorough work-up. CBC, electrolytes, and liver function tests are unremarkable. He had persistent tachycardia. He underwent gallbladder ultrasound which revealed 2.7 cm gallstone with gallbladder wall thickening with no evidence of any biliary ductal dilatation. Due to these findings and patient's symptomatology surgery was contacted for recommendations. At that time the patient was felt to likely have some degree of symptomatic gallstones as he has had some occasional self-limited right upper quadrant pain over about a year or so. It was felt that he may require cholecystectomy but this was not urgent. He was able to be managed as an outpatient. He states that his tachycardia has improved. He still has had some diarrhea but improving. He has follow-up with cardiology and they recommend further evaluation for infiltrative cardiomyopathy with amyloidosis protocol cardiac MRI and amyloidosis work-up. He was seen in the office in follow-up. Options were discussed. Plan was made to proceed with laparoscopic possibly open cholecystectomy. Operative findings:: He had some appreciable fatty infiltration of the liver. He had a distended thickened gallbladder with somewhat of a leathery consistency partially intrahepatic. There were findings consistent with hydrops of the gallbladder. There was a rather large gallstone impacted in the neck of the gallbladder. Operative note:: Patient was taken to the operating room. He was given preoperative intravenous antibiotics. In the operating room he was placed in a supine position. General anesthesia was induced via endotracheal tube. Abdomen was prepped and draped in the standard surgical fashion. Incision was made supraumbilically. While performing abdominal wall lift Veress needle was inserted. CO2 pneumoperitoneum was achieved to 15 mmHg. 11 mm optical trocar was inserted at the umbilicus. He was positioned in reverse Trendelenburg and left side down. A couple of 5 mm trocars were inserted in the right upper abdomen. 10 mm trocar was inserted in the epigastrium. Gallbladder was easily identified. It appeared as though it was partially intrahepatic toward its fundus with actually some liver parenchyma growing around the gallbladder. Gallbladder was rather tense and thickened. Attempt was made to aspirate using the laparoscopic needle aspiration device. There was evidence of hydrops of the gallbladder as it was aspirated with mucousy bile aspirated. Gallbladder was then retracted anteriorly over the dome of the liver. Blunt dissection was carried out the neck of the gallbladder bluntly incising the visceral peritoneum and fatty tissues. Prolonged dissection was carried out ultimately identifying the cystic duct and cystic artery in the critical view of safety. These were isolated. Cystic duct was multiply clipped and sharply divided. Dissection was carried out to the cystic artery which was carefully coagulated with DEBORAH ultrasonic harmonic kayley and divided. Attempt was made to dissect the gallbladder free from the liver in a retrograde fashion using DEBORAH ultrasonic harmonic kayley. This was only partially able to be done due to thickening of the gallbladder with it being partially intrahepati
--- NOTE | 2023-09-06 13:23 | EXP.ANES.I ---
[facility] Anesthesia Record Part I Anesthesia Record I Intake, IV Amount: 1,200 Hydration: Adequate Estimated blood loss (mL): 35 Urine output (mL): 0 Blood Pressure: 114/71 SaO2: 92 Pulse Rate: 99 Airway Patency: Patent Respiratory Rate: 21 Temperature: 97.6 F Patient is:: Drowsy and Oral/Nasal airway Stable to PACU at:: 13:20
[2023-09-06 13:52] LABS: POC Glucose,Bedside 295 (70-110)
[2023-09-06 13:52] LABS: POC Glucose,Bedside 349 (70-110)
[2023-09-06 14:35] LABS: POC Glucose,Bedside 279 (70-110)
[2023-09-06 14:35] LABS: POC Glucose,Bedside 297 (70-110)
--- NOTE | 2023-09-07 08:38 | EXP.ANES.II ---
[facility] Anesthesia Record Part II Anesthesia Record Part II Discharge Time: 14:20 Destination: Surgical Day Care (OP Surgery) PACU nurse assessment reviewed?: Yes Patient Condition:: Good Anesthesia Complications:: None Swallowing reflex intact?: Yes Airway Patency: Patent Cyanosis?: No Blood Pressure: 167/105 SaO2: 92 Respiratory Rate: 16 Pulse Rate: 90 Temperature: 97.1 F Mental Status: Alert & Oriented Pain level:: 0 Nausea and/or vomitting:: None Intake, IV Amount: 0 Hydration: Adequate
[2023-09-07 08:40] VITALS: BP 167/105; PULSE 90; RESP 16; TEMP 36.2; O2SAT 92
== END 2023-09-06 15:00 | disposition home or self-care (01) ==
PROVIDERS: PCP Nurse Practitioner Family; Visit Provider Surgery
PROC: 0FT44ZZ Resection of Gallbladder, Percutaneous Endoscopic Approach (ICD-10-PCS; CPT 47562; principal; 2023-09-06 11:00)
DX: K80.10 Calculus of gallbladder with chronic cholecystitis without obstruction (principal); E11.9 Type 2 diabetes mellitus without complications
CPT/HCPCS: 47562; 82962; 96374; J0131; J2405

== ENCOUNTER → 2023-09-27 09:47 | Outpatient (CLI) | payer OTHER, SELFPAY ==
[2023-09-27 10:45] LABS: Alanine Aminotransferase 64 U/L (12-78); Albumin Level 4.3 g/dl (3.5-5.0); Albumin/Globulin Ratio 1.7 (1.1-1.8); Alkaline Phosphatase 61 U/L (38-126); Aspartate Amino Transferase 44 U/L (17-59); Bilirubin,Total 0.7 mg/dl (0.2-1.3); Blood Urea Nitrogen 17 mg/dl (9-20); Calcium 9.7 mg/dl (8.4-10.2); Carbon Dioxide 24 mmol/L (22.0-30.0); Chloride 102 mmol/L (98-107); Chol/HDL Ratio 7.9 (1-3.5); Cholesterol 214 mg/dl (140-200); Estimated Glomerular Filt Rate 120 ml/min (>60); GFR (African American) 146 ML/MIN (>60); Globulin 2.6 g/dL (1.3-3.2); Glucose 245 mg/dl (74-100); HDL Cholesterol 27 mg/dl (40-60); Sodium 138 mmol/L (136-145); Total Protein,Serum 6.9 g/dl (6.3-8.2); Triglycerides 276 mg/dl (30-150); VLDL Cholesterol 55 mg/dL (0-40)
[2023-09-27 10:56] LABS: Direct LDL Cholesterol 140.34 mg/dL (100-129)
[2023-09-27 13:19] LABS: Hemoglobin A1C 9.3 % (4.0-6.0)
== END ==
PROVIDERS: PCP Nurse Practitioner Family; Visit Provider Nurse Practitioner Family
DX: E11.9 Type 2 diabetes mellitus without complications (principal); E78.5 Hyperlipidemia, unspecified; Z79.84 Long term (current) use of oral hypoglycemic drugs; Z79.85 Long-term (current) use of injectable non-insulin antidiabetic drugs
CPT/HCPCS: 36415; 80053; 80061; 83036

== ENCOUNTER → 2023-09-28 14:51 | Outpatient (CLI) | payer OTHER, SELFPAY ==
[2023-09-28 12:08] LABS: Folate 5.98 ng/mL; Vitamin B12 314 pg/mL (239-931)
[2023-09-29 08:18] LABS: Testosterone,Total 209 ng/dL (264-916)
== END ==
PROVIDERS: PCP Nurse Practitioner Family; Visit Provider Nurse Practitioner Family
DX: R53.83 Other fatigue (principal); E29.1 Testicular hypofunction; I25.10 Atherosclerotic heart disease of native coronary artery without angina pectoris; I10 Essential (primary) hypertension
CPT/HCPCS: 82607; 82746; 84403

== ENCOUNTER → 2023-10-04 16:09 | Outpatient (CLI) | payer OTHER, SELFPAY ==
[2023-10-06 13:43] LABS: Testosterone,Total 185 ng/dL (264-916)
== END ==
PROVIDERS: PCP Nurse Practitioner Family; Visit Provider Nurse Practitioner Family
DX: E29.1 Testicular hypofunction (principal)
CPT/HCPCS: 36415; 84403

== ENCOUNTER → 2023-10-19 11:00 | Outpatient (CLI) | payer OTHER, SELFPAY ==
[2023-10-20 04:38] LABS: Prolactin 10.3 ng/mL (4.0-15.2); Testosterone,Total 198 ng/dL (264-916)
[2023-10-20 08:29] LABS: FSH 4.6 mIU/mL (1.5-12.4); LH 6.3 mIU/mL (1.7-8.6)
== END ==
PROVIDERS: PCP Nurse Practitioner Family; Visit Provider Nurse Practitioner Family
DX: E29.1 Testicular hypofunction (principal)
CPT/HCPCS: 36415; 83001; 83002; 84146; 84403

== ENCOUNTER → 2023-10-25 09:12 | Outpatient (CLI) | payer OTHER, SELFPAY ==
--- NOTE | 2023-10-25 09:13 | XR_ITS ---
FINAL REPORT CLINICAL HISTORY: hypogonadism Osteoporosis screening COMPARISON: None FINDINGS: Using L1-4, the bone mineral density of the spine is 1.747 g/cm2, corresponding to T-score of 6.0, within normal limits. Using the left hip, the bone mineral density of the femoral neck is 1.346 g/cm2, corresponding to a T-score of 2.1, within normal limits. Using the right hip, the bone mineral density of the femoral neck is 1234 g/cm2, corresponding to a T-score of 2.2, within normal limits. FRAX not reported because all T-scores at or above -1.0. NOTE: T-score: Standard deviation compared with peak bone mass of young adult mean. *Following the recommendations of the International Society of Bone densitometry, classification of hip BMD is based on the lower of two T-scores; total hip or femoral neck. IMPRESSION: Normal bone mineral density of the lumbar spine and hips. Reviewed, Interpreted and Dictated by Len Vigil MD Transcribed by Ban Mukherjee Authenticated and [facility]
== END ==
PROVIDERS: PCP Nurse Practitioner Family; Visit Provider Nurse Practitioner Family
DX: E29.1 Testicular hypofunction (principal)
CPT/HCPCS: 77080

== ENCOUNTER 2023-12-27 15:59 | Outpatient (CLI) | payer OTHER, SELFPAY ==
--- NOTE | 2023-12-27 16:01 | XR_ITS ---
FINAL REPORT CLINICAL HISTORY: shoulder pain COMPARISON: None FINDINGS: 2 views of the right shoulder were obtained. There is no prior exam for comparison. There is no fracture or dislocation. The joint space is preserved. Soft tissues are normal. IMPRESSION: No acute osseous abnormality of the right shoulder. Reviewed, Interpreted and Dictated by Len Vigil MD Transcribed by Chantel Mota Authenticated and [facility]
== END 2023-12-27 23:59 ==
LOC: RAD 15:59
PROVIDERS: PCP Nurse Practitioner Family; Visit Provider Orthopaedic Surgery
DX: M25.511 Pain in right shoulder (principal)
CPT/HCPCS: 73030

== ENCOUNTER 2023-12-28 09:29 | Outpatient (CLI) | payer OTHER, SELFPAY ==
[2023-12-28 09:35] LABS: Microscopic, Urine URINE MICROSCOPIC (MICROSCOPIC)
[2023-12-28 09:57] LABS: Hemoglobin 16.7 g/dL (14.1-18.0); Mean Corpuscular HGB Conc 33.3 g/dL (31.8-35.4); Mean Corpuscular Volume 87.1 fl (80-94); Platelet Count 168 K/mm3 (142-424); Red Blood Count 5.74 M/mm3 (4.60-6.20); White Blood Count 6.7 K/mm3 (4.8-10.8)
[2023-12-28 10:22] LABS: Chloride 108 mmol/L (98-107); Potassium 4.3 mmoL/L (3.5-5.1); Sodium 135 mmol/L (136-145)
[2023-12-28 10:25] LABS: Alanine Aminotransferase 72 U/L (12-78); Albumin Level 4.1 g/dl (3.5-5.0); Albumin/Globulin Ratio 1.6 (1.1-1.8); Alkaline Phosphatase 48 U/L (38-126); Anion Gap 7.3 mEq/L (5-15); Aspartate Amino Transferase 45 U/L (17-59); Bilirubin,Total 0.8 mg/dl (0.2-1.3); Blood Urea Nitrogen 16 mg/dl (9-20); Carbon Dioxide 24 mmol/L (22.0-30.0); Cholesterol 205 mg/dl (140-200); Estimated Glomerular Filt Rate 90 ml/min (>60); GFR (African American) 109 ML/MIN (>60); Globulin 2.6 g/dL (1.3-3.2); Total Protein,Serum 6.7 g/dl (6.3-8.2); Triglycerides 219 mg/dl (30-150); VLDL Cholesterol 44 mg/dL (0-40)
[2023-12-28 10:26] LABS: Calcium 9.4 mg/dl (8.4-10.2); Chol/HDL Ratio 8.5 (1-3.5); Glucose 262 mg/dl (74-100); HDL Cholesterol 24 mg/dl (40-60)
[2023-12-28 10:37] LABS: Direct LDL Cholesterol 123.62 mg/dL (100-129)
[2023-12-28 11:16] LABS: Appearance,Urine CLEAR (Clear); Bilirubin,Urine Negative (Negative); Blood, Urine Negative (Negative); Color,Urine YELLOW (Yellow); Glucose,Urine (UA) 3+ (Negative); Ketones,Urine Negative (Negative); Leukocyte Esterase,Urine Negative (Negative); Nitrate,Urine Negative (Negative); PH,Urine 5.5 (5.0-8.5); Protein,Urine Negative (Negative); Specific Gravity, Urine >= 1.030 (1.005-1.030); Urobilinogen,Urine 0.2 EU/dl (0.2)
[2023-12-28 11:28] LABS: Total Protein,Urine Random < 5.0 mg/dL (0.0-12.0)
[2023-12-28 11:31] LABS: Albumin Level 4.3 g/dl (3.5-5.0); Anion Gap 12.3 mEq/L (5-15); Blood Urea Nitrogen 16 mg/dl (9-20); Calcium 9.4 mg/dl (8.4-10.2); Carbon Dioxide 23 mmol/L (22.0-30.0); Chloride 107 mmol/L (98-107); Creatinine,Urine Random 225 mg/dL (Not Estab.); Estimated Glomerular Filt Rate 90 ml/min (>60); GFR (African American) 109 ML/MIN (>60); Glucose 262 mg/dl (74-100); Phosphorous 3.3 mg/dl (2.5-4.5); Potassium 4.3 mmoL/L (3.5-5.1); Sodium 138 mmol/L (136-145)
[2023-12-28 12:52] LABS: Hemoglobin A1C 9.4 % (4.0-6.0)
[2023-12-29 09:07] LABS: Testosterone,Total 311 ng/dL (264-916)
== END 2023-12-28 23:59 ==
LOC: LAB 09:30
PROVIDERS: PCP Nurse Practitioner Family; Visit Provider Internal Medicine Nephrology
DX: E78.5 Hyperlipidemia, unspecified (principal); E11.9 Type 2 diabetes mellitus without complications; Z79.4 Long term (current) use of insulin
CPT/HCPCS: 36415; 80053; 80061; 80069; 81001; 82570; 83036; 84155; 84403; 85014; 85018; 85048; 85049

== ENCOUNTER 2024-01-13 16:01 | Outpatient (POV) | payer OTHER, SELFPAY | END 2024-01-13 23:59 | disposition home or self-care (01) | LOC: SC 16:01 | PROVIDERS: Visit Provider Internal Medicine Nephrology | DX: Z00.00 Encounter for general adult medical examination without abnormal findings (principal) ==

== ENCOUNTER 2024-01-18 09:16 | Outpatient (CLI) | payer OTHER, SELFPAY ==
--- NOTE | 2024-01-18 09:17 | CA_ITS ---
APPROVED REPORT EXAM: Limited 2D Echocardiogram Digital Sales Assistant: Linh Bah CRT Ht: 6 ft 3 in Wt: 330lbs BSA: 2.71 BP: 138/94 mmHg Indications: pre op gastric sleeve, cad, htn. ef check ef 45% echo 08/16/23 2D Dimensions Left Atrium 3.75 cm GL Strain -9.7 % LVOT 2.15 cm (M/F) 1.5-2.5 M-Mode Dimensions RVDd 2.10 cm (0.9-2.6) LVDd 5.36 cm (3.5-5.7) Ao Diam 4.34 cm (2.0-3.7) LVDs 3.74 cm (3.5-5.7) IVSd 1.93 cm (0.6-1.1) PWd 1.06 cm (0.6-1.1) EF (Teich) 57.10% FS 30.20% EDV (Teich) 138.90 mL ESV (Teich) 59.60 mL Other Information Study Quality: Technically Difficult Conclusion This is a limited TTE to evaluate for LVEF. Limited windows were obtained. Technically difficult study due to poor acoustic windows. The left ventricle is normal in size. There is increased LV wall thickness. There is mild global hypokinesis present. LVEF is 45%. Compared to prior study from 08/16/2023, the LVEF is unchanged. Of note, for future LVEF assessments in this patient, additional evaluation with ultrasound enhancing agent is recommended to better delineate the endocardial borders. Electronically signed by : Ann Marie Montiel MD 01/19/2024 00:06:50
== END 2024-01-18 23:59 ==
LOC: RT 09:17
PROVIDERS: PCP Nurse Practitioner Family; Visit Provider Physician Assistant
DX: Z01.818 Encounter for other preprocedural examination (principal); R94.30 Abnormal result of cardiovascular function study, unspecified
CPT/HCPCS: 93308

== ENCOUNTER 2024-01-20 17:31 | Outpatient (CLI) | payer OTHER, SELFPAY ==
--- NOTE | 2024-01-20 17:31 | MR_ITS ---
PROCEDURE INFORMATION: Exam: MR Right Upper Extremity Joint Without Contrast; Shoulder Exam date and time: 01/20/2024 5:38 PM Age: 48 years old Clinical indication: Shoulder; Right; Patient HX: Pain when raising arm; Additional info: Shoulder pain TECHNIQUE: Imaging protocol: Magnetic resonance imaging of the right upper extremity without contrast. Exam focused on the shoulder. COMPARISON: CR XR SHOULDER RT MIN 2V 12/27/2023 4:02 PM FINDINGS: Bones/joints: Near field artifact is problematic on several sequences. Glenoid labrum: There is an irregular tear of the anterior inferior glenoid labrum with small 9 mm ganglion cyst extending along anterior border of the glenoid. Supraspinatus tendon: Unremarkable. No evidence of tear. Infraspinatus tendon: Unremarkable. No evidence of tear. Subscapularis tendon: Unremarkable. No evidence of tear. Teres minor tendon: Unremarkable. No evidence of tear. Tendon of biceps brachii: Unremarkable. No evidence of tear. Glenohumeral ligaments: Unremarkable. Soft tissues: Unremarkable. IMPRESSION: 1. Near field artifact is problematic on several sequences. 2. There is an irregular tear of the anterior inferior glenoid labrum with small 9 mm ganglion cyst extending along anterior border of the glenoid.
== END 2024-01-20 23:59 ==
LOC: RAD 17:31
PROVIDERS: PCP Nurse Practitioner Family; Visit Provider Orthopaedic Surgery
DX: M25.511 Pain in right shoulder (principal)
CPT/HCPCS: 73221

== ENCOUNTER 2024-03-23 10:14 | Outpatient (CLI) | payer OTHER, SELFPAY ==
[2024-03-23 11:17] LABS: Alanine Aminotransferase 45 U/L (12-78); Albumin Level 4.3 g/dl (3.5-5.0); Albumin/Globulin Ratio 1.8 (1.1-1.8); Alkaline Phosphatase 41 U/L (38-126); Anion Gap 13.9 mEq/L (5-15); Aspartate Amino Transferase 37 U/L (17-59); Bilirubin,Total 0.7 mg/dl (0.2-1.3); Blood Urea Nitrogen 18 mg/dl (9-20); Calcium 9.7 mg/dl (8.4-10.2); Carbon Dioxide 27 mmol/L (22.0-30.0); Chloride 104 mmol/L (98-107); Chol/HDL Ratio 6.8 (1-3.5); Cholesterol 230 mg/dl (140-200); Estimated Glomerular Filt Rate 80 ml/min (>60); GFR (African American) 97 ML/MIN (>60); Globulin 2.4 g/dL (1.3-3.2); Glucose 98 mg/dl (74-100); HDL Cholesterol 34 mg/dl (40-60); Potassium 3.9 mmoL/L (3.5-5.1); Sodium 141 mmol/L (136-145); Total Protein,Serum 6.7 g/dl (6.3-8.2); Triglycerides 137 mg/dl (30-150); VLDL Cholesterol 27 mg/dL (0-40)
[2024-03-23 11:29] LABS: Direct LDL Cholesterol 158.49 mg/dL (100-129)
[2024-03-23 11:33] LABS: 25-OH Vitamin D, Total 33.3 ng/mL (30-100); Free T4 (Free Thyroxine) 1.04 ng/dl (0.78-2.19)
[2024-03-23 11:37] LABS: Hemoglobin A1C 7.2 % (4.0-6.0)
[2024-03-23 11:48] LABS: Thyroid Stimulating Hormone 2.17 uIU/mL (0.465-4.68)
[2024-03-25 08:17] LABS: Testosterone,Total 240 ng/dL (264-916)
== END 2024-03-23 23:59 | disposition home or self-care (01) ==
LOC: LAB 10:14
PROVIDERS: PCP Nurse Practitioner Family; Visit Provider Nurse Practitioner Family
DX: R53.83 Other fatigue (principal); E11.9 Type 2 diabetes mellitus without complications; E78.2 Mixed hyperlipidemia; R79.89 Other specified abnormal findings of blood chemistry; E66.9 Obesity, unspecified; Z68.38 Body mass index [BMI] 38.0-38.9, adult; Z79.899 Other long term (current) drug therapy
CPT/HCPCS: 36415; 80053; 80061; 82306; 83036; 84403; 84439; 84443

== ENCOUNTER 2024-04-19 10:53 | Outpatient (POV) | payer OTHER, SELFPAY ==
[2024-04-19 12:03] VITALS: BP 159/90; PULSE 86; RESP 18; O2SAT 96; BMI 39.9
--- NOTE | 2024-04-19 12:54 | EXP.PAIN.OV ---
HPI Data of Consult Patient: new to practice Consult date: 04/19/24 Requesting Physician: Kenzie Montero APRN Primary Care Provider: Silvia Barrios APRN Consult Narrative Reason for consult: Low back pain, right leg pain History of present illness: Mr. Morocho is a 48 year old male who presents today as a new patient. He is a self-referral. Today he rates his pain a 7 out of 10. Patient states this pain is all throughout his low back with radiating symptoms into his right leg down to the foot. Patient states that this has been going on at least a few years unrelated to any specific trauma or injury. He does state this is an aching, sensation with stiffness and some numbness. Patient states that he does have altered range of motion due to the pain. He states it frequently interferes with his activities of daily living such as cooking and cleaning. Patient states he will also have occasional flareups of sciatica or feel like the pain is in and around his tailbone. Patient states it gets harder and harder to get up and down or move around. Patient denies any prior surgery or injection history. Patient also states that he has not had recent imaging or done physical therapy. He has been to see a chiropractor in the past with minimal relief. Patient is active on a daily basis with no change in his symptoms. Patient has tried Tylenol and ibuprofen along with heat and ice and topicals with no real significant change. His Wiley has been reviewed and is appropriate. CC: Kenzie Montero APRN [facility] Disclaimer: The information contained in this section may have been updated after the patient was seen, as this information can be updated by other users. Medical History Adverse drug reaction BMI 39.0-39.9,adult Dehydration Diabetes 2014 Diarrhea Ejection fraction < 50% Establishing care with new doctor, encounter for Excessive cerumen in both ear canals Foreign body (FB) in soft tissue left foot, stepped on piece of glass HFrEF (heart failure with reduced ejection fraction) Hyperlipidemia Hypertension 2013 Neuropathy Osteoarthritis Bilateral hips, diagnosed 03/2022 Pre-op testing Trochanteric bursitis of right hip 2021 Surgical History History of colonoscopy 2019 with polypectomy, repeat every 3 [address] Gordon History of laparoscopic cholecystectomy 09/06/23 Family History Father , age 59 Cancer colon Mother Coronary artery disease Lewy body dementia Diabetes Brother Diabetes Brother Diabetes Social History (Updated 04/19/24 @ 12:04 by Georgette Marie RN) Smoking Status: Never smoker alcohol intake: never counseling provided: none substance use type: denies use current occupational status: employed Travel in the last 8 weeks: None household members: spouse and significant other housing: house caffeine: Yes Review of Systems Review of Systems Review of systems:: pertinent systems reviewed and negative unless documented below Review of systems (narrative): Review of Systems: General: No recent weight changes, no fever, no sleep disturbances Respiratory: No cough, no shortness of air, no recurring pulmonary infections Cardiovascular/peripheral vascular: No chest pain, no palpitations, no edema, no shortness of breath Gastrointestinal: No new onset incontinence, normal bowel movements reported Genitourinary: No new onset incontinence Musculoskeletal: Low back pain, right leg pain Psychiatric: [Normal mood/affect] Neurological: [Denies weakness in extremities], [denies balance issues] Meds Home Medications and Allergies Home Medications Medication Instructions Recorded Confirmed Type blood-glucose meter,continuous #1 ea 06/24/23 04/19/24 Rx (Dexcom G6 Patient Registration Representative) blood-glucose sensor (Dexcom G6 #3 ea 06/24/23 04/19/24 Rx Sensor device) blood-glucose transmitter (Dexcom #1 ea 06/24/23 04/19/24 Rx G6 Transmitter device) famotidine 20 mg tablet 20 mg PO BID PRN gerd #60 tabs 08/26/23 04/19/24 Rx metoprolol succinate 25 mg 25 mg PO DAILY #30 tabs 09/15/23 04/19/24 Rx tablet,extended release 24 hr (Toprol XL) fenofibrate nanocrystallized 145 145 mg PO DAILY #90 tabs 09/27/23 04/19/24 Rx mg tablet syringe with needle, safety 3 mL #100 09/29/23 04/19/24 Rx 23 gauge x 1 losartan 50 mg tablet 50 mg PO DAILY #90 tabs 12/27/23 04/19/24 Rx needle (disp) 18 G 18 gauge x 1 #1,000 12/27/23 04/19/24 History 1/2 (BD Short Bevel [place]) syringe with needle 3 mL 23 x 1 #1 ea 12/27/23 04/19/24 History (BD Luer-Jaqueline Syringe) testosterone cypionate 200 mg/mL 100 mg (0.5 mL) IM .q1w #2 mL 03/27/24 04/19/24 Rx intramuscular oil New Prescriptions to Start Prescriptions: Allergies Allergy/AdvReac Type Severity Reaction Status Date / Time lisinopril AdvReac cough Verified 03/27/24 08:22 Objective Vital signs: Pulse Resp BP Pulse Ox O2 Del Method 86 18 159/90 H 96 Room Air 04/19/24 12:03 04/19/24 12:03 04/19/24 12:03 04/19/24 12:03 04/19/24 12:03 Narrative: Physical Exam: General: Alert and oriented x3, no acute distress, pleasant and cooperative Lungs: Respirations even and unlabored, symmetrical chest expansion Eyes: PERRL Musculoskeletal: Flexion and extension of lumbar [spine] somewhat guarded secondary to pain, [antalgic gait noted] positive right leg raise with decreased sensation to light touch and decreased reflexes Neurological: Speech clear, no gross sensory deficit Assessment and Plan *Assessment and plan (1) Low back pain: Status: Acute Qualifiers: Chronicity: chronic Back pain laterality: bilateral Sciatica presence: unspecified whether sciatica present Qualified Code(s): M54.50 - Low back pain, unspecified; G89.29 - Other chronic pain Category: Medical Code(s): M54.50 - Low back pain, unspecified (2) Lumbar radiculopathy: Status: Acute Category: Medical Code(s): M54.16 - Radiculopathy, lumbar region (3) Right leg pain: Status: Acute Category: Medical Code(s): M79.604 - Pain in right leg Plan Patient is experiencing significant pain in his low back that does radiate down into his right leg. Patient has limited range of motion of his lumbar spine with a positive right leg raise. I have discussed with patient that he may benefit from a lumbar epidural steroid injection. Risk and benefits were discussed with the patient and he would like to proceed forward with this plan of care. Patient is not on any blood thinners. I have also discussed with patient in future he may benefit from additional imaging however we will follow-up with this at later visits. Patient did state that a lot of his pain is down lower. We will schedule the patient for an LESI L4-L5 under fluoroscopy. Patient has been instructed to contact the clinic with any concerns before the next appointment. Dr. Ramirez has reviewed this note and agrees with this plan of care. This note was dictated using voice recognition software and make contain errors or omissions.
== END 2024-04-19 23:59 | disposition home or self-care (01) ==
LOC: SC.PAIN 10:54
PROVIDERS: PCP Nurse Practitioner Family; Visit Provider Nurse Practitioner Family
DX: M54.50 Low back pain, unspecified (principal); G89.29 Other chronic pain; M54.16 Radiculopathy, lumbar region; M79.604 Pain in right leg
CPT/HCPCS: 99202; G0463

== ENCOUNTER 2024-04-26 14:46 | Outpatient (CLI) | payer OTHER, SELFPAY ==
[2024-04-26 15:28] LABS: Basophils # 0.1 K/mm3 (0-0.2); Basophils % 1.2 % (0.1-2.0); Eosinophils # 0.3 K/mm3 (0.0-0.4); Eosinophils % 4.6 % (0.1-12.0); Hemoglobin 15.5 g/dL (14.1-18.0); Lymphocytes # 1.4 K/mm3 (0.7-4.5); Lymphocytes % 23.7 % (10-50); Mean Corpuscular HGB Conc 32.2 g/dL (31.8-35.4); Mean Platelet Volume 9.3 fl (7.4-10.4); Monocytes # 0.3 K/mm3 (0.1-1.0); Monocytes % 5.7 % (1.7-9.3); Neutrophils # 3.9 K/mm3 (1.8-7.8); Neutrophils % 64.8 % (37.0-80.0); Platelet Count 165 K/mm3 (142-424); Red Blood Count 5.34 M/mm3 (4.60-6.20); Red Cell Distribution Width 15.5 % (11.5-17.5)
[2024-04-26 16:15] LABS: Alanine Aminotransferase 63 U/L (12-78); Albumin Level 4.3 g/dl (3.5-5.0); Albumin/Globulin Ratio 1.9 (1.1-1.8); Alkaline Phosphatase 44 U/L (38-126); Anion Gap 15.8 mEq/L (5-15); Aspartate Amino Transferase 46 U/L (17-59); Bilirubin,Total 0.7 mg/dl (0.2-1.3); Blood Urea Nitrogen 21 mg/dl (9-20); Calcium 9.5 mg/dl (8.4-10.2); Carbon Dioxide 23 mmol/L (22.0-30.0); Chloride 102 mmol/L (98-107); Estimated Glomerular Filt Rate 59 ml/min (>60); GFR (African American) 71 ML/MIN (>60); Globulin 2.3 g/dL (1.3-3.2); Glucose 390 mg/dl (74-100); Potassium 4.8 mmoL/L (3.5-5.1); Sodium 136 mmol/L (136-145); Total Protein,Serum 6.6 g/dl (6.3-8.2)
== END 2024-04-26 23:59 | disposition home or self-care (01) ==
LOC: LAB 14:47
PROVIDERS: PCP Nurse Practitioner Family; Visit Provider Orthopaedic Surgery
DX: Z01.811 Encounter for preprocedural respiratory examination (principal); Z01.818 Encounter for other preprocedural examination
CPT/HCPCS: 36415; 80053; 85025

== ENCOUNTER 2024-05-01 06:47 | Day surgery (SDC) | payer OTHER, SELFPAY ==
[2024-04-28 12:49] VITALS: BMI 39.9
[2024-05-01] VITALS (10 sets, daily range): BP systolic 130–174; BP diastolic 76–100; PULSE 81–99; RESP 14–20; TEMP 36.1–43; O2SAT 91–95
[2024-05-01] MEDS: LACTATED RINGERS 1000ML 1,000 ML 100 ML IV (07:27)
--- NOTE | 2024-05-01 07:40 | P.PNANES_ITS ---
[facility] Disclaimer: The information contained in this section may have been updated after the patient was seen, as this information can be updated by other users. Medical History Ejection fraction < 50% HFrEF (heart failure with reduced ejection fraction) Pre-op testing Dehydration Adverse drug reaction Foreign body (FB) in soft tissue left foot, stepped on piece of glass BMI 39.0-39.9,adult Trochanteric bursitis of right hip 2021 Osteoarthritis Bilateral hips, diagnosed 03/2022 Establishing care with new doctor, encounter for Excessive cerumen in both ear canals Neuropathy Hypertension 2013 Hyperlipidemia Diabetes 2013 Diarrhea Surgical History History of laparoscopic cholecystectomy 09/06/23 History of colonoscopy 2019 with polypectomy, repeat every 3 to [address] Gordon Family History Father , age 59 Cancer colon Mother Coronary artery disease Lewy body dementia Diabetes Brother Diabetes Brother Diabetes Social History (Updated 05/01/24 @ 07:19 by Naty Montemayor RN) Smoking Status: Never smoker alcohol intake: never counseling provided: none substance use type: denies use current occupational status: employed Travel in the last 8 weeks: None household members: spouse and significant other housing: house caffeine: Yes [facility] Anesthesia Checklist Patient Identification Patient Identification: Arm Band, Family and Verbal (Name & ) Structural Data Admitted From: Home Planned Operative Procedure/s: RT. Shoulder Scope; Ant. labral repair; acromial decompression Consent for Planned Operative Procedure(s) Verified: Yes Verified Documents: Surgical Consent and History and Physical NPO Status Verified Time NPO: 20:30 Chart Verification Results Verified: CBC, BMP, ECG and Chest Xray Additional verifications Fingerstick Blood Glucose: 171 Patient : No Anesthesia Reactions: No Hx Blood Transfusions: No Blood Transfusion Reaction: No Cardiovascular Assessment Heart Sounds: S1 & S2 Pulse Rhythm: Irregular Peripheral Edema: No Airway Assessment Mallampati Score:: Class II C-Spine Mobility Assessed: Yes (FROM) TMJ Mobility Assessed: Yes Dentition: Good Dentition (Nothing loose per pt.) Neurological Assessment Level of Consciousness: Awake, Alert, Appropriate and Follows Commands Hx Seizures: No Numbness or tingling in extremities: No Anesthesia Plan Anesthesia Risk discussed: Yes Anesthesia Plan: Verified ASA Class: III Anesthesia Type: General w/block
[2024-05-01 08:54] LABS: POC Glucose,Bedside 181 (70-110)
[2024-05-01] MEDS: EPINEPHrine 0.1 MG/ML 10ML SYRINGE (CRASH CART) 1 MG (09:49)
[2024-05-01] MEDS: CEFAZOLIN SODIUM 2 GM in 0.9 % SODIUM CHLORIDE 100 ML IV (09:50)
--- NOTE | 2024-05-01 11:04 | P.OP_ITS ---
Date of procedure: 05/01/24 Pre-op Diagnosis:: Right shoulder anterior labral tear Right shoulder anterior labral paralabral cyst Right shoulder subacromial bursitis with impingement Post-op Diagnosis:: Right shoulder anterior labral tear Right shoulder anterior labral paralabral cyst Right shoulder subacromial bursitis with impingement Procedure performed:: Right shoulder arthroscopy with anterior labral repair Right shoulder arthroscopy with debridement anterior labral paralabral cyst Right shoulder subacromial decompression with bursectomy Surgeon:: Cecil Montero DO Display Coordinator(s):: Vincent COTTON TRANSONIC ENGINEER:: Chan Neri Anesthesia: GETA and regional Estimated blood loss (mL): 5 Operative findings:: Significant subacromial bursitis with impingement. Anterior labral tear Anterior labral paralabral cyst Operative note:: Patient is identified preoperatively. Right shoulder marked with yes my initials. Underwent a block with anesthesia and taken the operating room. Placed upon the operating bed general anesthesia administered and airway secured. Right shoulder was then prepped and draped within the arm chahal. Once prepped and draped final operative timeout performed to identify proper patient procedure and extremity. Everyone involved in the case agreed. There were no counter indications to beginning. He did receive preoperative antibiotics. Marking pen was used to aurora the bony landmarks of the shoulder and standard portal sites. Skin knife is used to incise posterior viewing portal and blunt with trocar was placed in the subacromial space. Within the subacromial space there was significant bursitis with a large amount of subacromial bursa which was debrided after a lateral portal was visualized directly and made sucker shaver was placed extensive bursectomy was performed superior surface of the rotator cuff was intact. There is downsloping of the acromion. Using a 5.5 mm barrel bur subacromial decompression and acromioplasty was performed. Bursectomy was completed. Attention was then brought into the glenohumeral joint the trocar was then placed in the glenohumeral joint exchange with a camera. I swept directly anteriorly just above the subscapularis tendon where the anterior working portal was made with a purple cannula. This is exchanged with a probe within the glenohumeral joint there was evidence of tearing of the anterior labrum the biceps anchor was intact no split of the biceps debridement of the labral tissue was performed the rim of the labrum on the glenoid was debrided with a sucker shaver. Attention was then brought to repair of the anterior labrum. Anterior paralabral cyst ruptured with the sucker shaver and debrided. Power was opened and the Arthrex fiber tag 1.8 mm knotless anchor was selected the straight guide was placed on the glenoid and the initial anchor was hand impacted then followed by impaction with a hammer the all 3 sutures were pulled to set the anchor below the cartilage. At that time curved lasso was utilized for grasping the anterior labrum for repair. Accessory portal was made and the nitinol wire and the blue repair stitch were taken out through the accessory portal and passed through the labrum. This repair stitch and then was also placed through the shuttling portion of the knotless anchor to engage and set the anchor. Under direct visualization with tensioning the labrum was then attention with the repair and was cut additional anchor was placed superior in the same fashion. This gave good repair of the anterior labral tear with the cyst debrided and the labrum repaired no further pathology was seen the cameras removed the joint was drained skin was closed with nylon stitches. Sterile dressings placed patient placed in an abduction pillow and sling taken recovery in stable condition. Condition: stable Disposition: PACU Complications:: None apparent
--- NOTE | 2024-05-01 11:13 | EXP.ANES.I ---
[facility] Anesthesia Record Part I Anesthesia Record I Intake, IV Amount: 1,800 Hydration: Adequate Estimated blood loss (mL): 0 Urine output (mL): 0 Blood Pressure: 135/100 SaO2: 94 Pulse Rate: 96 Airway Patency: Patent Respiratory Rate: 14 Temperature: 97.9 F Patient is:: Awake and Stable Stable to PACU at:: 11:10
[2024-05-01 11:27] LABS: POC Glucose,Bedside 263 (70-110)
--- NOTE | 2024-05-02 12:33 | EXP.ANES.II ---
[facility] Anesthesia Record Part II Anesthesia Record Part II Discharge Time: 11:40 Destination: [facility] PACU nurse assessment reviewed?: Yes Patient Condition:: Good Anesthesia Complications:: None Swallowing reflex intact?: Yes Airway Patency: Patent Cyanosis?: No Blood Pressure: 141/87 SaO2: 92 Respiratory Rate: 14 Pulse Rate: 84 Temperature: 97.5 F Mental Status: Alert & Oriented Pain level:: 0 Nausea and/or vomitting:: None Intake, IV Amount: 2,500 Hydration: Adequate
[2024-05-02 12:34] VITALS: BP 141/87; PULSE 84; RESP 14; TEMP 36.4; O2SAT 92
== END 2024-05-01 12:11 | disposition home or self-care (01) ==
PROVIDERS: PCP Nurse Practitioner Family; Visit Provider Orthopaedic Surgery
PROC: (CPT 29805; principal; 2024-05-01 08:15)
DX: S43.491A Other sprain of right shoulder joint, initial encounter (principal); S43.431A Superior glenoid labrum lesion of right shoulder, initial encounter; M75.41 Impingement syndrome of right shoulder; M75.51 Bursitis of right shoulder; E11.9 Type 2 diabetes mellitus without complications; Z79.4 Long term (current) use of insulin
CPT/HCPCS: 29806; 29822; 82962; 96374; C1713; J0690; J1885; J2250; J2405; J3010; J7120

== ENCOUNTER 2024-06-26 14:44 | Outpatient (CLI) | payer OTHER, SELFPAY ==
[2024-06-26 13:59] LABS: Microscopic, Urine URINE MICROSCOPIC (MICROSCOPIC)
[2024-06-26 14:31] LABS: Appearance,Urine CLOUDY (Clear); Blood, Urine Negative (Negative); Color,Urine YELLOW (Yellow); Glucose,Urine (UA) TRACE (Negative); Ketones,Urine Negative (Negative); Leukocyte Esterase,Urine Negative (Negative); Nitrate,Urine Negative (Negative); PH,Urine 5.5 (5.0-8.5); Protein,Urine TRACE (Negative); Specific Gravity, Urine >= 1.030 (1.005-1.030); Urobilinogen,Urine 0.2 EU/dl (0.2)
[2024-06-26 14:35] LABS: Bilirubin,Urine 1+ (Negative)
[2024-06-26 14:40] LABS: Anion Gap 12.3 mEq/L (5-15); Blood Urea Nitrogen 14 mg/dl (9-20); Calcium 9.8 mg/dl (8.4-10.2); Carbon Dioxide 25 mmol/L (22.0-30.0); Chloride 106 mmol/L (98-107); Chol/HDL Ratio 8.5 (1-3.5); Cholesterol 239 mg/dl (140-200); Estimated Glomerular Filt Rate 90 ml/min (>60); GFR (African American) 109 ML/MIN (>60); Glucose 205 mg/dl (74-100); HDL Cholesterol 28 mg/dl (40-60); Potassium 4.3 mmoL/L (3.5-5.1); Sodium 139 mmol/L (136-145); Triglycerides 263 mg/dl (30-150); VLDL Cholesterol 53 mg/dL (0-40)
[2024-06-26 14:50] LABS: Direct LDL Cholesterol 157.85 mg/dL (100-129)
[2024-06-26 14:54] LABS: Hemoglobin A1C 10.3 % (4.0-6.0)
[2024-06-26 14:59] LABS: Amorphous Sediment,Urine 4+ /lpf; Bacteria,Urine 1+ /lpf; RBC,Urine Occasional #/hpf (0-3); Squamous Epithelial Cell,Urine Occasional #/hpf (0-5); WBC,Urine Occasional #/hpf (0-3)
[2024-06-26 15:28] LABS: Vitamin B12 356 pg/mL (239-931)
[2024-06-26 17:38] LABS: Creatinine,Urine Random 422 mg/dL (Not Estab.); Microalbumin/Creatinine Ratio 16.1
[2024-07-02 21:07] LABS: Testosterone, Total, LC/MS 381 ng/dL (.)
== END 2024-06-26 23:59 | disposition home or self-care (01) ==
LOC: LAB.DROPOF 14:44
PROVIDERS: PCP Nurse Practitioner Family; Visit Provider Nurse Practitioner Family
DX: E11.29 Type 2 diabetes mellitus with other diabetic kidney complication (principal); E53.8 Deficiency of other specified B group vitamins; E78.2 Mixed hyperlipidemia; Z79.4 Long term (current) use of insulin; E29.1 Testicular hypofunction; R80.9 Proteinuria, unspecified
CPT/HCPCS: 80048; 80061; 81001; 82043; 82570; 82607; 83036; 84403

== ENCOUNTER 2024-07-27 15:00 | Outpatient (RCR) | payer OTHER, SELFPAY | END 2024-07-27 23:59 | disposition home or self-care (01) | LOC: OT 15:00 | PROVIDERS: Visit Provider Orthopaedic Surgery | DX: Z98.890 Other specified postprocedural states (principal); M25.511 Pain in right shoulder | CPT/HCPCS: 97010; 97014; 97035; 97110; 97140; 97164; 97165; 97530; G0283 ==

== ENCOUNTER 2024-10-29 11:24 | Emergency (ER) | payer OTHER, SELFPAY ==
[2024-10-29 12:15] VITALS: BP 140/82; PULSE 80; RESP 19; TEMP 36.6; O2SAT 98; BMI 41.5
--- NOTE | 2024-10-29 12:30 | EXP.UTC ---
Discharge Plan Disposition Patient Disposition: Home, Self-Care Condition: Good Prescriptions Prescriptions: New benzonatate 100 mg capsule 100 mg PO TID PRN (Reason: cough) Qty: 30 0RF amoxicillin-pot clavulanate 875-125 mg Tablet 1 tab PO Q12H Qty: 20 0RF guaifenesin [Mucinex] 1,200 mg tablet extended release 12hr 1,200 mg PO Q12H Qty: 20 0RF No Action losartan 100 mg tablet 100 mg PO DAILY Qty: 90 3RF fenofibrate nanocrystallized 145 mg tablet 145 mg PO DAILY Qty: 90 3RF metoprolol succinate [Toprol XL] 25 mg tablet extended release 24 hr 25 mg PO DAILY Qty: 90 3RF metformin 1,000 mg tablet 1,000 mg PO BID Qty: 180 3RF Repatha SureClick 140 mg/mL pen injector 140 mg SQ Q2W Qty: 6 3RF insulin glargine [Basaglar KwikPen U-100 Insulin] 100 unit/mL (3 mL) insulin pen 60 unit SQ HS Qty: 15 11RF Protocol: Insulin Corrective High-Dose Regimen Condition: Fingerstick Blood Glucose Dose/Route: Insulin Units Condition: 151-200 mg/dl Dose/Route: 5 units/SQ Condition: 201-250 mg/dl Dose/Route: 7 units/SQ Condition: 251-300 mg/dl Dose/Route: 10 units/SQ Condition: 301-350 mg/dl Dose/Route: 12 units/SQ Condition: 351-400 mg/dl Dose/Route: 15 units/SQ Condition: 401-450 mg/dl Dose/Route: 20 units/SQ Condition: > 450 mg/dl Dose/Route: CALL MD Protocol Text: High Intensity Sliding Scale Insulin Referrals Follow up/Referrals: Silvia Barrios APRN [Primary Care Provider] - See instructions Activity Restrictions/Add. Instructions Additional Instructions/Restrictions: Start antibiotic today. Be sure to complete entire prescription even if feeling better Monitor temp. Tylenol every 4 hours as needed and / or ibuprofen every 6 hours as needed ( As long as your primary care physician has told you that it ok to take both. For fever/aches/pains ER if no less than 101 despite Tylenol or Motrin Humidifier/vaporizer or hot steamy shower Mucinex for your cough and cough suppressant only at night. Be sure to drink lots of water. Insurance may not cover a prescriptions for mucinex. Might be cheaper to get 400mg tablets and take 2 tablet in the morning, mid-day and evening with lots of water. *Promethazine DM cough syrup will cause drowsiness. Use only at night. No driving, operating machinery or caring for small children after taking it *Tessalon Perles will not cause drowsiness but use at bedtime to help stop cough so that you may get some rest. *Start steroid today. Helps with inflammation therefore, cough and wheezing. Follow directions on the package. Reviewed side effects. Patient reports taking them before. Follow up IMMEDIATELY for new or worsening of symptoms OR no noticeable improvement over the next 48-72 hours. 911 immediately for any life threatening symptoms such as chest pain or difficulty breathing Clinical Impressions Clinical Impression: Sinusitis Instructions Patient Instructions: DI for Sinusitis, Sinusitis Print Language Print Language: Yakut Discharge ED Provider: Vikki Tenorio [facility] [place] HPI General Stated complaint: cough, sore throat, congestion Mode of Arrival: Ambulatory Source of Information: Patient Limitations: No Limitations Time Seen by Provider: 10/29/24 12:30 Description of Symptoms (Recalled from Triage Doc. by RN): PATIENT C/O SORE THROAT, COUGH, AND CHEST/SINUS CONGESTION THAT STARTED WEDNESDAY HEENT Symptoms (Recalled from RN notes): Yes Resp Symptoms (Recalled from RN notes): Yes Skin Symptoms (Recalled from RN notes): No MS Symptoms (Recalled from RN notes): No Functional Status (Recalled from RN notes): WNL History of Present Illness Provider Complaint: Patient states that he started feeling bad last week States that he has been having sinus congestion and pressure, cough, sore throat, and over all not feeling well So today when he was still not feeling well he came in to get checked Related Data Previous Rx's ?Medication ?Instructions ?Recorded fenofibrate nanocrystallized 145 145 mg PO DAILY #90 tabs 06/26/24 mg tablet losartan 100 mg tablet 100 mg PO DAILY #90 tabs 06/26/24 metoprolol succinate 25 mg 25 mg PO DAILY #90 tabs 06/26/24 tablet,extended release 24 hr (Toprol XL) metformin 1,000 mg tablet 1,000 mg PO BID #180 tabs 06/28/24 evolocumab 140 mg/mL subcutaneous 140 mg SQ Q2W #6 mL 06/29/24 pen injector (Repatha SureClick) insulin glargine 100 unit/mL (3 60 unit SQ HS #15 mL 08/10/24 mL) subcutaneous pen (Basaglar KwikPen U-100 Insulin) amoxicillin 875 mg-potassium 1 tab PO Q12H #20 tabs 10/29/24 clavulanate 125 mg tablet benzonatate 100 mg capsule 100 mg PO TID PRN cough #30 caps 10/29/24 guaifenesin 1,200 mg tablet, 1,200 mg PO Q12H #20 tabs 10/29/24 extended release 12 hr (Mucinex) Allergies Allergy/AdvReac Type Severity Reaction Status Date / Time lisinopril AdvReac cough Verified 08/01/24 09:14 Worker's Comp Is this a Worker's Comp case?: No [facility] Disclaimer: The information contained in this section may have been updated after the patient was seen, as this information can be updated by other users. Medical History Ejection fraction < 50% HFrEF (heart failure with reduced ejection fraction) Pre-op testing Dehydration Adverse drug reaction Foreign body (FB) in soft tissue left foot, stepped on piece of glass BMI 39.0-39.9,adult Trochanteric bursitis of right hip 2021 Osteoarthritis Bilateral hips, diagnosed 03/2022 Establishing care with new doctor, encounter for Excessive cerumen in both ear canals Neuropathy Hypertension 2013 Hyperlipidemia Diabetes 2013 Diarrhea Surgical History History of laparoscopic cholecystectomy 09/06/23 History of colonoscopy 2019 with polypectomy, repeat every 3 to [address] Gordon Family History Father , age 59 Cancer colon Mother Coronary artery disease Lewy body dementia Diabetes Brother Diabetes Brother Diabetes Social History Smoking Status: Never smoker alcohol intake: never counseling provided: none substance use type: denies use current occupational status: employed Travel in the last 8 weeks: None household members: spouse and significant other housing: house caffeine: Yes Have you lived/traveled outside [place] in past 30 days?: No Contact w/someone who lives/traveled outside US past 30 days?: No Exposure to someone with infectious disease in past 14 days?: No Do you have a fever (greater than 100.4 F or 38 C)?: No Have you tested positive for COVID-19: No Exposed to someone with COVID-19 in past 14 days?: No Do you have a sore throat?: Yes Do you have a cough?: Yes Do you have any weakness?: No Do you have any diarrhea?: No Are you experiencing any unusual bleeding?: No Do you have any muscle aches/pain?: No Do you have any abdominal pain?: No Are you experiencing loss of taste or smell?: No ROS Obtained: Yes All systems reviewed & no additional complaints except as documented and Yes Systems reviewed as appropriate & no additional complaints except as documented Constitutional Constitutional: Reports system reviewed and no additional complaints, except as documented, Reports as per HPI and Reports headache(s) ENT Ears, Nose, Mouth, and Throat: Reports system reviewed and no additional complaints, except as documented, Reports as per HPI, Reports headache(s), Reports sinus pain, Reports sinus pressure and Reports sore throat Cardiovascular Cardiovascular: Reports system reviewed and no additional complaints, except as documented and Reports as per HPI Respiratory Respiratory: Reports system reviewed and no additional complaints, except as documented, Reports as per HPI, Denies shortness of breath, Reports chest congestion and Reports cough Gastrointestinal Gastrointestingal: Reports system reviewed and no additional complaints, except as documented and as per HPI Musculoskeletal Musculoskeletal: Reports system reviewed and no additional complaints, except as documented and Reports as per HPI Integumentary/Breasts Skin/Breast: Reports system reviewed and no additional complaints, except as documented and Reports as per HPI Neurologic Neurologic: Reports headache(s) Physical Exam General General appearance: alert and in no apparent distress ENT ENT exam: Present mucous membranes moist Expanded ENT Exam Nose exam: Absent sinus tenderness Throat exam: Present other (PND noted) Respiratory Respiratory exam: Present normal lung sounds bilaterally; Absent respiratory distress or wheezes Cardiovascular Cardiovascular exam: Present regular rate, normal rhythm and normal heart sounds Abdominal Exam Abdominal exam: Present soft and normal bowel sounds; Absent distention or tenderness Neurological Exam Neurological exam: Present alert, oriented X3 and normal gait Medical Decision Making Medical Records Screening: Per USPSTF and CDC recommendations, given the prevalence of disease in our region, it is our hospital?s policy to screen for HIV and viral Hepatitis for all patients aged 18 and over and those with ongoing risk factors. Wiley Inquiry Pt receiving controlled substance: No Wiley was queried for this patient: No Vital Signs: 10/29/24 12:15 Temperature 97.8 F Temperature Source Oral Pulse Rate [Left Brachial] 80 Respiratory Rate 19 Blood Pressure [Left Arm] 140/82 Blood Pressure Mean [Left Arm] 101 Blood Pressure Source [Left Arm] Automatic Cuff Blood Pressure Position [Left Arm] Sitting 02 Sat by Pulse Oximetry 98 Oxygen Delivery Method Room Air Lab Data Lab results reviewed: Yes I reviewed the patient's lab results.
[2024-10-29 12:49] LABS: UTC Strep Screen (Rapid) Negative (Negative)
[2024-10-29 12:50] VITALS: BP 140/82; PULSE 80; RESP 19; TEMP 36.6; O2SAT 98
== END 2024-10-29 12:53 | disposition home or self-care (01) ==
PROVIDERS: Emergency Provider Nurse Practitioner; PCP Nurse Practitioner Family
DX: J01.90 Acute sinusitis, unspecified (principal)
CPT/HCPCS: 87880; 99213; G0381

== ENCOUNTER 2025-05-22 13:24 | Emergency (ER) | payer OTHER, SELFPAY ==
[2025-05-22 13:52] VITALS: BP 155/86; PULSE 104; RESP 18; TEMP 37.1; O2SAT 95; BMI 41.2
--- OUTSIDE RECORDS SUMMARY | 2025-05-22 14:20 | XMS_ITS | Clinical Summary ---
Author Organization [facility] Address [address] [place] [address] Care Team Providers Care Supervisor Endless Track Vehicle Name Role Phone BarriosSilvia Vinod PAYNE Primary Care Provider [phone] Allergies Active Allergy Reactions Criticality Noted Date Comments Lisinopril Cough Low 06/15/2023 Medications Continuous Blood Gluc Sensor (Gumiyoyle Samson 3 Sensor) [facility] USE DIRECTED TO TEST BLOOD GLUCOSE (CHANGE SENSOR EVERY 14 DAYS) 04/03/20 23 Active fenofibrate (Tricor) 145 MG tablet Take 1 tablet (145 mg) by mouth 1 (one) time each day. 03/22/20 23 Active losartan (Cozaar) 50 MG tablet Take 1 tablet (50 mg) by mouth 1 (one) time each day. 03/22/20 23 Active metFORMIN (Glucophage) 500 MG tablet Take 1 tablet (500 mg) by mouth. 03/22/20 23 Active Ozempic, 0.25 or 0.5 MG/DOSE, 2 MG/3ML solution pen-injector 05/24/20 23 Active Continuous Blood Gluc Transmit (Dexcom G6 transmitter) [facility] USE DIRECTED TO TEST BLOOD GLUCOSE LEVEL (CHANGE TRANSMITTER EVERY 90 DAYS) 07/05/20 23 Active famotidine (Pepcid) 20 MG tablet TAKE ONE TABLET BY MOUTH TWICE DAILY NEEDED FOR gerd 08/26/20 23 Active Basaglar KwikPen 100 UNIT/ML injection pen INJECT 10 UNITS SUBCUTANEOUSLY EVERY DAY AT BEDTIME 12/27/19 24 Active metoprolol succinate XL (Toprol-XL) 25 MG 24 hr tablet Take 1 tablet (25 mg) by mouth 1 (one) time each day. 12/16/19 24 Active B-D HYPODERMIC NEEDLE 18GX1.5 18G X 1-1/2 misc USE TO DRAW UP TESTOSTERONE DIRECTED 12/17/19 24 Active B-D 3CC LUER-SERGIO SYR 23GX1 23G X 1 3 ML misc USE DIRECTED INTRAMUSCULARLY FOR testosterone 12/17/19 Active testosterone cypionate (Depo-Testoste candice) 200 MG/ML injection INJECT 0.5 ML INTRAMUSCULARLY EVERY 2 WEEKS DISCARD REMAINDER OF VIAL AFTER EACH USE 12/14/19 24 Active Active Problems Problem Noted Date Diagnosed Date Class III obesity with body mass index (BMI) of 40.0 or higher 01/13/2024 Microalbuminuria 01/13/2024 Family History Medical History Relation Name Comments Colon cancer Father Coronary artery disease Mother Debbie Morocho Dementia Mother Debbie Morocho Diabetes Mother Debbie Morocho Hypertension Mother Debbie Morocho Kidney disease Mother Debbie Morocho Relation Name Status Comments Father Mother Debbie Morocho Alive Social History Tobacco Use Types Packs/Day Years Used Date Smoking Tobacco: Never Passive Smoke Exposure: Never Smokeless Tobacco: Never Alcohol Use Standard Drinks/Week Comments Not Currently 0 (1 standard drink = 0.6 oz pur e alcohol) Sex and Gender Information Value Date Recorded Sex Assigned at Not on file Legal Sex Male 6:06 PM EDT Gender Identity Not on file Sexual Orientation Not on file Last Filed Vital Signs Vital Sign Reading Time Taken Comments Blood Pressure 140/79 01/13/2024 1:41 PM EST Pulse 90 01/13/2024 1:41 PM EST Temperature - - Respiratory Rate 16 01/13/2024 1:41 PM EST Oxygen Saturation 95% 01/13/2024 1:41 PM EST Inhaled Oxygen Concentration - - Weight 153 kg (336 lb 4.8 oz) 01/13/2024 1:41 PM EST Height 190.5 cm (6' 3 ) 01/13/2024 1:41 PM EST Body Mass Index 42.03 01/13/2024 1:41 PM EST Plan of Treatment Health Maintenance Due Date Last Done Comments [facility]-Depression Screening 1975 [facility]-HIV Screening 1975 [facility]-Hepatitis C Screening 1975 [facility]-Infant/Child/Adol SDOH Screenings 1975 [facility]- SDOH Screenings 1993 [facility]-Adult SDOH Screenings 1993 [facility]-Hepatitis B Vaccines (1 of 3 - 19+ 3-dose series) 1994 CT Colonography 2020 Colonoscopy 2020 FIT-DNA 2020 FIT 2020 FOBT 2020 Sigmoidoscopy 2020 [facility]-Colorectal Cancer Screening 2020 [id number] Vaccine (4 - season) 2024 07/23/2021, 12/11/2020, 11/12/2020 [facility]-Zoster Vaccines (1 of 2) 2025 [facility]-Influenza Vaccine (#1) 2025 08/08/2023 [facility]-DTaP,Tdap,and Td Vaccine s (2 - Td or Tdap) 08/10/2033 08/10/2023 [facility]-Obesity Intervention Completed 024, 06/21/2023 HPV Vaccines Aged Out No longer eligi ble based on patient's age to complete this topic [facility]-HIB Vaccines Aged Out No longer e ligible based on patient's age to complete this topic [facility]-Hepatitis A Vaccines Aged Out No longer eligible based on patient's age to complete this topic [facility]-IPV Vaccines Aged Out No longer e ligible based on patient's age to complete this topic [facility]-Pneumococcal Vaccine: Pediatrics (0 to 5 Years) and At-Risk Patients (6 to 49 Years) Aged Out No longer eligible b ased on patient's age to complete this topic [facility]-Rotavirus Vaccines Aged Out No lo nger eligible based on patient's age to complete this topic Insurance [facility] Care Teams Supervisor Endless Track Vehicle Relationship Specialty Start Date End Date Silvia Barrios APRN [address] [id number] PCP - General 06/15/23
--- OUTSIDE RECORDS SUMMARY | 2025-05-22 14:20 | XMS_ITS | Encounter Summary ---
Author Organization [facility] Address [address] [place] [address] Care Team Providers Care Remote Control Mirror Installer Name Role Phone Silvia Barrios APRN Primary Care Provider [phone] Encounter Details Date Type Department Care Team (Late st Contact Info) Description 06/18/2023 Community [facility] Practice [address] [place] [address] Ara Heard APRN [address] [place] [id number] XOCHILT (obstructive sleep apnea) (Primary Dx) Social History Tobacco Use Types Packs/Day Years Used Date Smoking Tobacco: Never Passive Smoke Exposure: Never Smokeless Tobacco: Never Alcohol Use Standard Drinks/Week Comments Never 0 (1 standard drink = 0.6 oz pur e alcohol) Sex and Gender Information Value Date Recorded Sex Assigned at Not on file Legal Sex Male 6:06 PM EDT Gender Identity Not on file Sexual Orientation Not on file documented as of this encounter Plan of Treatment Not on file documented as of this encounter Visit Diagnoses Diagnosis XOCHILT (obstructive sleep apnea)- Primary Obstructive sleep apnea (adult) (pediatric) documented in this encounter Care Teams Remote Control Mirror Installer Relationship Specialty Start Date End Date Silvia Barrios APRN [address] [place] [address] PCP - General 06/15/23 documented as of this encounter
--- NOTE | 2025-05-22 14:31 | ED_ITS ---
<Statement entered by Elizabeth Yanes DO - 05/23/25 08:59> I was consulted by the KASSIE, and we discussed the complexity of problems being addressed. I approve the treatment and management plan for this patient's care in the emergency department, thus performing a substantial portion of the medical decision making. Elizabeth Yanes DO Discharge Plan Disposition Patient Disposition: Home, Self-Care Condition: Good Prescriptions Prescriptions: No Action losartan 100 mg tablet 100 mg PO DAILY Qty: 90 3RF fenofibrate nanocrystallized 145 mg tablet 145 mg PO DAILY Qty: 90 3RF metoprolol succinate [Toprol XL] 25 mg tablet extended release 24 hr 25 mg PO DAILY Qty: 90 3RF metformin 1,000 mg tablet 1,000 mg PO BID Qty: 180 3RF Repatha SureClick 140 mg/mL pen injector 140 mg SQ Q2W Qty: 6 3RF insulin glargine [Basaglar KwikPen U-100 Insulin] 100 unit/mL (3 mL) insulin pen 60 unit SQ HS Qty: 15 11RF Protocol: Insulin Corrective High-Dose Regimen Condition: Fingerstick Blood Glucose Dose/Route: Insulin Units Condition: 151-200 mg/dl Dose/Route: 5 units/SQ Condition: 201-250 mg/dl Dose/Route: 7 units/SQ Condition: 251-300 mg/dl Dose/Route: 10 units/SQ Condition: 301-350 mg/dl Dose/Route: 12 units/SQ Condition: 351-400 mg/dl Dose/Route: 15 units/SQ Condition: 401-450 mg/dl Dose/Route: 20 units/SQ Condition: > 450 mg/dl Dose/Route: CALL MD Protocol Text: High Intensity Sliding Scale Insulin benzonatate 100 mg capsule 100 mg PO TID PRN (Reason: cough) Qty: 30 0RF amoxicillin-pot clavulanate 875-125 mg Tablet 1 tab PO Q12H Qty: 20 0RF guaifenesin [Mucinex] 1,200 mg tablet extended release 12hr 1,200 mg PO Q12H Qty: 20 0RF Referrals Follow up/Referrals: Silvia Barrios APRN [Primary Care Provider, Family Practice] - See instructions Clinical Impressions Clinical Impression: Foreign body Instructions Patient Instructions: DI for Removal of Foreign Body From Skin Print Language Print Language: Belarusian Discharge ED Provider: Elizabeth Yanes General Adult HPI General Chief complaint: Skin/Abscess/Foreign Body Stated complaint: R thumb Laceration with Glass in it Time Seen by Provider: 05/22/25 14:20 Mode of Arrival: Ambulatory Source of Information: Patient Description of Symptoms (Recalled from ER Triage Doc. by RN): pt presents to ED c/o right thumb injury. pt states he was attempting to open a container when right thumb was punctured. History of Present Illness HPI narrative: 49-year-old male presents to the ED today for complaint of right thumb injury after trying to open a container in the cafeteria. He says that the plastic shattered and went into his right thumb. He has a piece of plastic in his right thumb. He tried several times to remove it and was unable to. Related Data Previous Rx's ?Medication ?Instructions ?Recorded fenofibrate nanocrystallized 145 145 mg PO DAILY #90 t abs 06/26/24 mg tablet losartan 100 mg tablet 100 mg PO DAILY #90 tabs metoprolol succinate 25 mg 25 mg PO DAILY #90 tabs tablet,extended release 24 hr (Toprol XL) metformin 1,000 mg tablet 1,000 mg PO BID #180 tabs evolocumab 140 mg/mL subcutaneous 140 mg SQ Q2W #6 mL 06/29/24 pen injector (Repatha SureClick) insulin glargine 100 unit/mL (3 60 unit SQ HS #15 mL 1 mL) subcutaneous pen (Basaglar KwikPen U-100 Insulin) amoxicillin 875 mg-potassium 1 tab PO Q12H #20 tabs clavulanate 125 mg tablet benzonatate 100 mg capsule 100 mg PO TID PRN cough #30 caps 10/29/24 guaifenesin 1,200 mg tablet, 1,200 mg PO Q12H #20 tabs 10/29/24 extended release 12 hr (Mucinex) Allergies Allergy/AdvReac Type Severity Reaction Status Date / Time lisinopril AdvReac cough Verified 08/01/24 09:14 [facility] Disclaimer: The information contained in this section may have been updated after the patient was seen, as this information can be updated by other users. Medical History Ejection fraction < 50% HFrEF (heart failure with reduced ejection fraction) Pre-op testing Dehydration Adverse drug reaction Foreign body (FB) in soft tissue left foot, stepped on piece of glass BMI 39.0-39.9,adult Trochanteric bursitis of right hip 2021 Osteoarthritis Bilateral hips, diagnosed 03/2022 Establishing care with new doctor, encounter for Excessive cerumen in both ear canals Neuropathy Hypertension 2013 Hyperlipidemia Diabetes 2013 Diarrhea Surgical History History of laparoscopic cholecystectomy 09/06/23 History of colonoscopy 2019 with polypectomy, repeat every [address] Gordon Family History Father , age 59 Cancer colon Mother Coronary artery disease Lewy body dementia Diabetes Brother Diabetes Brother Diabetes Social History Smoking Status: Never smoker alcohol intake: never counseling provided: none substance use type: denies use current occupational status: employed Travel in the last 8 weeks?: None household members: spouse and significant other housing: house caffeine: Yes Have you lived/traveled outside US in past 30 days?: No Contact w/someone who lives/traveled outside US past 30 days?: No Exposure to someone with infectious disease in past 14 days?: No Do you have a fever (greater than 100.4 F or 38 C)?: No Have you tested positive for COVID-19?: No Exposed to someone with COVID-19 in past 14 days?: No Do you have a sore throat?: No Do you have a cough?: No Do you have any weakness?: No Do you have any diarrhea?: No Are you experiencing any unusual bleeding?: No Do you have any muscle aches/pain?: No Do you have any abdominal pain?: No Are you experiencing loss of taste or smell?: No Other Medical History Have you received the Flu Vaccine for this season: Yes Have you received the Pneumonia Vaccine: No ROS Obtained: Yes Systems reviewed as appropriate & no additional complaints except as documented Constitutional Constitutional: Reports as per HPI Physical Exam General General appearance: alert and in no apparent distress Head Head exam: atraumatic and normocephalic Eye Eye exam: Present normal appearance, PERRL and EOMI ENT ENT exam: Present mucous membranes moist Neck Neck exam: Present trachea midline Respiratory Respiratory exam: Present normal lung sounds bilaterally Cardiovascular Cardiovascular exam: Present regular rate, normal rhythm, normal heart sounds, +S1 and +S2 Extremities Exam Extremities exam: Present tenderness (To right thumb) and normal capillary refill Neurological Exam Neurological exam: Present alert, oriented X3 and normal gait Skin Skin exam: Present warm, dry, intact and other (Plastic in right thumb) Medical Decision Making Medical Records Screening: Per USPSTF and CDC recommendations, given the prevalence of disease in our region, it is our hospital?s policy to screen for HIV and viral Hepatitis for all patients aged 18 and over and those with ongoing risk factors. Wiley Inquiry Pt receiving controlled substance: No Wiley was queried for this patient: No Vital Signs: 05/22/25 13:52 05/22/25 14:40 Temperature 98.8 F 98.3 F Temperature Source Oral Oral Pulse Rate 72 Pulse Rate [Right Radial] 104 H Respiratory Rate 18 18 Blood Pressure 142/78 H Blood Pressure [Left Arm] 155/86 H Blood Pressure Mean [Left Arm] 109 Blood Pressure Source Automatic Cuff Blood Pressure Source [Left Arm] Automatic Cuff Blood Pressure Position Sitting Blood Pressure Position [Left Arm] Sitting 02 Sat by Pulse Oximetry 95 Oxygen Delivery Method Room Air Room Air Medical Decision Narrative: 49-year-old male presents to the ED today for evaluation of a piece of plastic in his right thumb. Patient stable upon arrival to the ED. He was in the cafeteria and opened a plastic bowl and it shattered and a piece entered his right thumb. I removed this manually. I did place some Dermabond on the cut. There were no complications. Patient is safe for discharge home. Procedures Foreign Body Removal Time Out Performed: Yes Site: right and hand (Thumb) Description of foreign body: other (Plastic) Sedation/Analgesia: none Technique: manual removal Confirmed by:: direct visualization Complications: none Post-procedure exam: awake, alert Neurovascular: normal distal pulse, normal capillary fill and no change from pre -procedure Critical Care Critical Care Time Critical Care Time: No
[2025-05-22 14:40] VITALS: BP 142/78; PULSE 72; RESP 18; TEMP 36.8; O2SAT 98
== END 2025-05-22 14:52 | disposition home or self-care (01) ==
PROVIDERS: Emergency Provider Student in an Organized Health Care Education/Training Program; PCP Nurse Practitioner Family
DX: S60.351A Superficial foreign body of right thumb, initial encounter (principal); W45.8XXA Other foreign body or object entering through skin, initial encounter
CPT/HCPCS: 99282

== ENCOUNTER 2025-07-16 09:36 | Outpatient (CLI) | payer OTHER, SELFPAY ==
[2025-07-16 13:21] LABS: Microscopic, Urine URINE MICROSCOPIC (MICROSCOPIC)
[2025-07-16 13:43] LABS: Bilirubin,Urine Negative (Negative); Color,Urine YELLOW (Yellow); Glucose,Urine (UA) 3+ (Negative); Ketones,Urine Negative (Negative); Leukocyte Esterase,Urine Negative (Negative); PH,Urine 6.0 (5.0-8.5); Protein,Urine Negative (Negative); Specific Gravity, Urine 1.025 (1.005-1.030); Urobilinogen,Urine 0.2 EU/dl (0.2)
[2025-07-16 13:44] LABS: Hematocrit 47.6 % (42.0-52.0); Hemoglobin 15.3 g/dL (14.1-18.0); Immature Granulocytes % 0.2 %; Mean Corpuscular HGB Conc 32.1 g/dL (31.8-35.4); Mean Corpuscular Hemoglobin 27.4 pg (27.0-31.2); Mean Corpuscular Volume 85.2 fl (80-94); Nucleated Red Blood Cells % 0 %; Platelet Count 197 K/mm3 (142-424); Red Blood Count 5.59 M/mm3 (4.60-6.20); Red Cell Distribution Width-SD 42.9 fL; White Blood Count 5.7 K/mm3 (4.8-10.8)
[2025-07-16 14:01] LABS: Alkaline Phosphatase 55 U/L (38-126); Bilirubin,Total 0.7 mg/dl (0.2-1.3); Calcium 9.7 mg/dl (8.4-10.2); Carbon Dioxide 24 mmol/L (22.0-30.0); Cholesterol 229 mg/dl (140-200); Glucose 224 mg/dl (74-100); HDL Cholesterol 27 mg/dl (40-60); Total Protein,Serum 6.8 g/dl (6.3-8.2); Triglycerides 296 mg/dl (30-150)
[2025-07-16 14:16] LABS: Free T4 (Free Thyroxine) 1.57 ng/dl (0.78-2.19)
[2025-07-16 14:19] LABS: 25-OH Vitamin D, Total 22.9 ng/mL (30-100)
[2025-07-16 14:23] LABS: Hemoglobin A1C 11.9 % (4.0-6.0)
[2025-07-16 14:35] LABS: Thyroid Stimulating Hormone 4.09 uIU/mL (0.465-4.68)
[2025-07-16 15:23] LABS: Albumin Level 4.4 g/dl (3.5-5.0); Albumin/Globulin Ratio 1.8 (1.1-1.8); Anion Gap 12.2 mEq/L (5-15); Chloride 107 mmol/L (98-107); Globulin 2.4 g/dL (1.3-3.2); Potassium 4.2 mmoL/L (3.5-5.1); Sodium 139 mmol/L (136-145)
[2025-07-16 15:26] LABS: Alanine Aminotransferase 58 U/L (12-78); Aspartate Amino Transferase 40 U/L (17-59); Blood Urea Nitrogen 19 mg/dl (9-20); Creatinine,Serum 0.80 mg/dl (0.66-1.25); Estimated Glomerular Filt Rate 102 ml/min (>60); GFR (African American) 124 ML/MIN (>60)
[2025-07-16 15:42] LABS: WBC,Urine Occasional #/hpf (0-3)
[2025-07-16 16:54] LABS: Vitamin B12 232 pg/mL (239-931)
--- OUTSIDE RECORDS SUMMARY | 2025-07-17 10:16 | XMS_ITS | Clinical Summary ---
Author Organization [facility] Address [address] [place] [address] Care Team Providers Care Professor Of Forest Planning Name Role Phone BarriosSilvia Vinod PAYNE Primary Care Provider [phone] Allergies Active Allergy Reactions Criticality Noted Date Comments Lisinopril Cough Low 06/15/2023 Medications Continuous Blood Gluc Sensor (BehavioSecyle Samson 3 Sensor) [facility] USE DIRECTED TO TEST BLOOD GLUCOSE (CHANGE [...] Continuous Blood Gluc Transmit (Dexcom G6 transmitter) [facility] USE DIRECTED TO TEST BLOOD GLUCOSE LEVEL [...] [facility]-HIV Screening 1975 [facility]-Hepatitis C Screening 1975 [facility]-/Child/Adol SDOH Screenings 1975 [facility]- SDOH Screenings 1993 [facility]-Adult SDOH Screenings 1993 [facility]-Hepatitis B Vaccines (1 of 3 - 19+ 3-dose series) 1994 CT Colonography 2020 Colonoscopy 2020 FIT-DNA 2020 FIT 2020 FOBT 2020 Sigmoidoscopy 2020 [facility]-Colorectal Cancer Screening 2020 [facility]-Pneumococcal Vaccine: 50 + Years (1 of 1 - PCV) 2025 [facility]Y-Zoster Vaccines (1 of 2) 2025 [id number] Vaccine (4 - season) 2025 07/23/2021, 12/11/2020, 11/12/2020 [facility]-Influenza Vaccine (#1) 2025 08/08/2023 [facility]-DTaP,Tdap,and Td [...] patient's age to complete this topic Insurance [facility] Care Teams Professor Of Forest Planning Relationship Specialty Start Date End Date Silvia Barrios APRN [address] [phone] PCP - General 06/15/23
--- OUTSIDE RECORDS SUMMARY | 2025-07-17 10:16 | XMS_ITS | Encounter Summary ---
Author Organization [facility] Address [address] [place] [address] Care Team Providers Care Supervisor Agency Appointments Name Role Phone Silvia Barrios APRN Primary Care Provider [phone] Encounter Details Date Type Department Care Team (Late st Contact Info) Description 06/18/2023 Community [facility] Community Practice [address] [place] [address] Ara Heard APRN [address] [place] [id number] XOCHILT (obstructive sleep apnea) (Primary Dx) Social [...] (pediatric) documented in this encounter Care Teams Supervisor Agency Appointments Relationship Specialty Start Date End Date Silvai Barrios APRN [address] [place] [address] PCP - General 06/15/23 documented as of this encounter
== END 2025-07-16 23:59 | disposition home or self-care (01) ==
LOC: LAB.DROPOF 07-17 10:07
PROVIDERS: PCP Nurse Practitioner Family; Visit Provider Nurse Practitioner Family
DX: E53.8 Deficiency of other specified B group vitamins (principal); Z11.59 Encounter for screening for other viral diseases; Z11.4 Encounter for screening for human immunodeficiency virus [HIV]; E11.29 Type 2 diabetes mellitus with other diabetic kidney complication; Z68.41 Body mass index [BMI] 40.0-44.9, adult; Z12.5 Encounter for screening for malignant neoplasm of prostate; G47.33 Obstructive sleep apnea (adult) (pediatric); I10 Essential (primary) hypertension; E78.5 Hyperlipidemia, unspecified; I25.10 Atherosclerotic heart disease of native coronary artery without angina pectoris; R80.9 Proteinuria, unspecified; R41.3 Other amnesia
CPT/HCPCS: 80053; 80061; 81001; 82043; 82306; 82570; 82607; 83036; 84156; 84439; 84443; 85025; 87086; G0103

== ENCOUNTER 2025-08-30 08:51 | Outpatient (CLI) | payer OTHER, SELFPAY ==
--- OUTSIDE RECORDS SUMMARY | 2025-08-30 09:00 | XMS_ITS | Encounter Summary ---
Author Organization [facility] Address [address] [place] [address] Care Team Providers Care Web Content & Social Media Manager Name Role Phone Silvia Barrios APRN Primary Care Provider [phone] Encounter Details Date Type Department Care Team (Late st Contact Info) Description 06/18/2023 Community [facility] Community Practice [address] [place] [address] Ara Heard APRN [address] [place] [phone] XOCHILT (obstructive sleep apnea) (Primary Dx) Social [...] (pediatric) documented in this encounter Care Teams Web Content & Social Media Manager Relationship Specialty Start Date End Date Silvia Barrios APRN [address] [place] [address] PCP - General 06/15/23 documented as of this encounter
--- OUTSIDE RECORDS SUMMARY | 2025-08-30 09:00 | XMS_ITS | Clinical Summary ---
Author Organization [facility] Address [address] [place] [address] Care Team Providers Care Senior Java Programmer Analyst Name Role Phone BarriosSilvia Vinod PAYNE Primary Care Provider [phone] Allergies Active Allergy Reactions Criticality Noted Date Comments Lisinopril Cough Low 06/15/2023 Medications Continuous Blood Gluc Sensor (NeGoBuYyle Samson 3 Sensor) [facility] [place] USE DIRECTED TO TEST BLOOD GLUCOSE (CHANGE [...] Continuous Blood Gluc Transmit (Dexcom G6 transmitter) [facility] USE DIRECTED TO TEST BLOOD GLUCOSE LEVEL [...] 2025 [facility]-Zoster Vaccines (1 of 2) 2025 [id number] Vaccine (4 - season) 2025 07/23/2021, 12/11/2020, [...] patient's age to complete this topic Insurance [facility] Care Teams Senior Java Programmer Analyst Relationship Specialty Start Date End Date Silvia Barrios APRN [address] [phone] PCP - General 06/15/23
[2025-08-31 08:13] LABS: Testosterone,Total 217 ng/dL (264-916)
== END 2025-08-30 23:59 | disposition home or self-care (01) ==
LOC: LAB 08:52
PROVIDERS: PCP Nurse Practitioner Family; Visit Provider Nurse Practitioner Family
DX: R79.89 Other specified abnormal findings of blood chemistry (principal)
CPT/HCPCS: 36415; 84403

== ENCOUNTER 2025-09-10 08:34 | Day surgery (SDC) | payer OTHER, SELFPAY ==
--- NOTE | 2025-09-06 07:17 | EXP.HP ---
History of Present Illness *Admission Date: 09/10/25 *History of present illness: Mr. Morocho is a 50-year-old gentleman who is here for screening/surveillance colonoscopy. He does state that his father had gastric or colon cancer at the age of 59. The patient originally started having colonoscopies at the age of 40 and the first colonoscopy showed a colon polyp. His last colonoscopy in January 2019 (Uriel Gordon M.D.) showed no polyps. The patient does report loose stools with some frequency and urgency that occurs postprandially. If he eats outside of the home, at least 75%, he will need to have a bowel movement before he leaves the restaurant. He does note that salads cause more gassiness but in general he has no significant gassiness or bloating. He reports no rectal bleeding or unintentional weight loss. He will have regular formed stools for 1 or 2 weeks and then resume with some loose stools. The examination is deemed medically necessary for screening/surveillance colonoscopy. The patient has been seen, interviewed and examined prior to the procedure by both myself and the anesthesia provider. [facility] Disclaimer: The information contained in this section may have been updated after the patient was seen, as this information can be updated by other users. Medical History Sleep apnea Encounter for hepatitis C screening test for low risk patient Screening for HIV (human immunodeficiency virus) Abnormal gallbladder ultrasound Tachycardia Gallstone Rotator cuff syndrome of right shoulder Low back pain Lumbar radiculopathy Right leg pain Sinusitis Foreign body Ejection fraction < 50% HFrEF (heart failure with reduced ejection fraction) Pre-op testing Dehydration Adverse drug reaction Foreign body (FB) in soft tissue BMI 39.0-39.9,adult Trochanteric bursitis of right hip Osteoarthritis Establishing care with new doctor, encounter for Excessive cerumen in both ear canals Neuropathy Hypertension Hyperlipidemia Diabetes Diarrhea Surgical History History of laparoscopic cholecystectomy History of colonoscopy Family History Father , age 59 Cancer colon Mother Coronary artery disease Lewy body dementia Diabetes Brother Diabetes Brother Diabetes Social History (Updated 09/10/25 @ 08:45 by Norma Johnson RN) Smoking Status: Never smoker alcohol intake: never counseling provided: none substance use type: denies use current occupational status: employed Travel in the last 8 weeks?: None household members: spouse and significant other housing: house caffeine: Yes Have you lived/traveled outside US in past 30 days?: No Contact w/someone who lives/traveled outside US past 30 days?: No Exposure to someone with infectious disease in past 14 days?: No Do you have a fever (greater than 100.4 F or 38 C)?: No Have you tested positive for COVID-19?: No Exposed to someone with COVID-19 in past 14 days?: No Do you have a sore throat?: No Do you have a cough?: No Do you have any weakness?: No Are you experiencing any nausea/vomitting?: No Do you have any diarrhea?: No Are you experiencing any unusual bleeding?: No Do you have any muscle aches/pain?: No Do you have any abdominal pain?: No Are you experiencing loss of taste or smell?: No Other Medical History Have you received the Flu Vaccine for this season: Yes Have you received the Pneumonia Vaccine: No Review of Systems Review of Systems Review of systems (narrative): Negative *Cardiovascular Comments: Negative *Gastrointestinal Comments: Negative *Genitourinary Comments: Negative *Musculoskeletal Comments: Negative *Neurologic Comments: Negative Meds Home Medications and Allergies Home Medications ?Medication ?Instructions ?Recorded ?Confirmed ?Type fenofibrate nanocrystallized 145 145 mg PO DAILY #90 tabs 07/16/25 09/07/25 Rx mg tablet insulin glargine 100 unit/mL (3 60 unit SQ HS #18 mL 07/16/25 09/07/25 Rx mL) subcutaneous pen (Basaglar KwikPen U-100 Insulin) losartan 100 mg tablet 100 mg PO DAILY #90 tabs 07/16/25 09/07/25 Rx metformin 1,000 mg tablet 1,000 mg PO BID #180 tabs 07/16/25 09/07/25 Rx metoprolol succinate 25 mg 25 mg PO DAILY #90 tabs 07/16/25 09/07/25 Rx tablet,extended release 24 hr (Toprol XL) cholecalciferol (vitamin D3) 50 50 mcg PO DAILY #90 caps 07/18/25 09/07/25 Rx mcg (2,000 unit) capsule varicella-zoster glycoE vacc-[id number] 50 mcg IM ONCE #10 ea 07/18/25 07/24/25 Rx adj(PF) 50 mcg/0.5 mL IM susp, kit (Shingrix (PF)) diclofenac sodium 75 mg 75 mg PO BID PRN pain #60 tabs 08/19/25 09/07/25 Rx tablet,delayed release evolocumab 140 mg/mL subcutaneous 140 mg SQ Q2W #6 mL 08/19/25 09/07/25 Rx pen injector (Repatha SureClick) tirzepatide 5 mg/0.5 mL 5 mg (0.5 mL) SQ WEEKLY #2 mL 08/19/25 09/07/25 Rx subcutaneous pen injector (Mounjaro) sodium,potassium,mag sulfates 17.5 See Rx Instructions PO .COMPLEX 08/28/25 Rx gram-3.13 gram-1.6 gram oral soln #354 mL (Suprep Bowel Prep Kit) New Prescriptions to Start Prescriptions: Allergies Allergy/AdvReac Type Severity Reaction Status Date / Time lisinopril AdvReac cough Verified 07/24/25 11:38 Exam *Routine HEENT Exam Head: Present normocephalic Eye: Present EOMI and PERRL ENT: Present mucous membranes moist *Routine Neck Exam Neck: Present supple *Routine Respiratory Exam Respiratory: Present CTA bilaterally *Routine Cardiovascular Exam Cardiovascular: Present RRR *Routine Abdominal Exam Abdominal: Present soft and normoactive bowel sounds; Absent tenderness *Routine Rectal Exam Rectal:: deferred *Routine Genitalia Exam Genitalia:: deferred *Routine Extremities Exam Extremities: Absent cyanosis, clubbing or edema *Routine Skin Exam Skin: Present warm; Absent rash *Routine Neurological Exam Neurological: Present alert and oriented X3 Assessment and Plan *Assessment and plan (1) Family history of colon cancer: Status: Acute Category: Medical Code(s): Z80.0 - Family history of malignant neoplasm of digestive organs (2) Personal history of colon polyps, unspecified: Status: Acute Category: Medical Code(s): Z86.0100 - Personal history of colon polyps, unspecified (3) Loose stools: Status: Acute Category: Medical Code(s): R19.5 - Other fecal abnormalities (4) Screening for colon cancer: Status: Acute Category: Medical Code(s): Z12.11 - Encounter for screening for malignant neoplasm of colon Plan A/P: 1. Personal history of colon polyps and presumed family history of colon cancer is the preprocedural diagnosis. The patient will be anesthetized/sedated using MAC sedation. The patient has been seen and examined. Cardiac and lung assessment prior to the examination is stable. Proceed with planned screening colonoscopy.
--- NOTE | 2025-09-10 07:00 | P.PCN_ITS ---
[facility] Procedure Note Date: 09/10/25 Time: 09:58 Procedure Note:: Colonoscopy Procedure Report: Colonoscopy with cold snare polypectomy Endoscopist: Aleksey Mahoney II, MD Referring physician: NAYANA Maddox Date of Procedure: September 10, 2025 Equipment: Olympus [id number] adult colonoscope Sedation: MAC sedation Indication: Mr. Morocho is a 50-year-old gentleman who is here for screening/surveillance colonoscopy. He does state that his father had gastric or colon cancer at the age of 59. The patient originally started having colonoscopies at the age of 40 and the first colonoscopy showed a colon polyp. His last colonoscopy in January 2019 (Uriel Gordon M.D.) showed no polyps. The patient does report loose stools with some frequency and urgency that occurs postprandially. If he eats outside of the home, at least 75%, he will need to have a bowel movement before he leaves the restaurant. He does note that salads cause more gassiness but in general he has no significant gassiness or bloating. He reports no rectal bleeding or unintentional weight loss. He will have regu lar formed stools for 1 or 2 weeks and then resume with some loose stools. He has tried the psyllium Konsyl but is not on this regularly. He has noted some improvement with Mounjaro. The examination is deemed medically necessary for screening/surveillance colonoscopy. Procedure: Prior to the procedure, a history and physical exam was performed, and patient's medications and allergies were reviewed. The risks, benefits and alternatives of the sedation and procedure were discussed with the patient. All questions were answered and informed consent was obtained. The patient was brought to the procedure room. Patient identification and proposed procedure were verified by the physician and the nurse. The patient was placed in a left lateral decubitus position and the scope was passed under direct vision. Throughout the procedure, the patient's blood pressure, pulse, and oxygen saturations were monitored continuously. The colonoscopy was accomplished without difficulty. The patient tolerated the procedure well. Findings: On digital rectal examination there was normal rectal tone. There were no external hemorrhoids. The prostate was 2+, smooth, soft, symmetric without nodules. The colonoscope was introduced through the anal canal to the rectum and advanced to the cecum. The ileocecal valve and appendiceal orifice were identified. The scope was advanced a short distance into the ileum which appeared grossly normal. The scope was then withdrawn into the colon. The cecum, ascending and transverse colon and mucosa were grossly normal. There were scattered diverticuli throughout the descending and sigmoid colon (LEFT colon). There was a diminutive 4 mm hyperplastic appearing polyp in the rectosigmoid removed via cold snare polypectomy. The rectum itself was normal. Upon retroflexion within the rectum there were grade 1-2 internal hemorrhoids. The preparation was excellent throughout with Aquilla Preparation Score of 9. The cecal time was 12 minutes. Impression: 1. Diminutive hyperplastic appearing rectosigmoid polyp (4 mm) 2. Left-sided diverticulosis 3. Grade 1-2 internal hemorrhoids Plan: I will follow-up the polyp histology and recommend repeat screening/surveillance colonoscopy again in 10 years if the polyp is hyperplastic. I would encourage psyllium bulking fiber supplementation on a long-term daily maintenance basis.
[2025-09-10 08:44] VITALS: BP 155/81; PULSE 93; RESP 16; TEMP 36.4; O2SAT 94; BMI 39.7
[2025-09-10] MEDS: LACTATED RINGERS 1000ML 1,000 ML 50 ML IV (08:58)
[2025-09-10 09:01] LABS: POC Glucose,Bedside 157 gm/dL (70-110)
--- NOTE | 2025-09-10 09:07 | P.PNANES_ITS ---
[facility] Disclaimer: The information contained in this section may have been updated after the patient was seen, as this information can be updated by other users. Medical History Sleep apnea Encounter for hepatitis C screening test for low risk patient Screening for HIV (human immunodeficiency virus) Abnormal gallbladder ultrasound Tachycardia Gallstone Rotator cuff syndrome of right shoulder Low back pain Lumbar radiculopathy Right leg pain Sinusitis Foreign body Ejection fraction < 50% HFrEF (heart failure with reduced ejection fraction) Pre-op testing Dehydration Adverse drug reaction Foreign body (FB) in soft tissue BMI 39.0-39.9,adult Trochanteric bursitis of right hip Osteoarthritis Establishing care with new doctor, encounter for Excessive cerumen in both ear canals Neuropathy Hypertension Hyperlipidemia Diabetes Diarrhea Surgical History History of laparoscopic cholecystectomy History of colonoscopy Family History Father , age 59 Cancer colon Mother Coronary artery disease Lewy body dementia Diabetes Brother Diabetes Brother Diabetes Social History (Updated 09/10/25 @ 08:45 by Norma Johnson RN) Smoking Status: Never smoker alcohol intake: never counseling provided: none substance use type: denies use current occupational status: employed Travel in the last 8 weeks?: None household members: spouse and significant other housing: house caffeine: Yes Have you lived/traveled outside US in past 30 days?: No Contact w/someone who lives/traveled outside US past 30 days?: No Exposure to someone with infectious disease in past 14 days?: No Do you have a fever (greater than 100.4 F or 38 C)?: No Have you tested positive for COVID-19?: No Exposed to someone with COVID-19 in past 14 days?: No Do you have a sore throat?: No Do you have a cough?: No Do you have any weakness?: No Are you experiencing any nausea/vomitting?: No Do you have any diarrhea?: No Are you experiencing any unusual bleeding?: No Do you have any muscle aches/pain?: No Do you have any abdominal pain?: No Are you experiencing loss of taste or smell?: No [facility] Anesthesia Checklist Patient Identification Patient Identification: Arm Band and Verbal (Name & ) Structural Data Admitted From: Home Planned Operative Procedure/s: colonoscopy Verified Documents: Surgical Consent NPO Status Verified Time NPO: 00:00 Chart Verification Results Verified: None Additional verifications Fingerstick Blood Glucose: 157 Anesthesia Reactions: No Hx Blood Transfusions: No Blood Transfusion Reaction: No Airway Assessment Mallampati Score:: Class II C-Spine Mobility Assessed: Yes TMJ Mobility Assessed: Yes Dentition: Good Dentition Neurological Assessment Level of Consciousness: Awake, Alert and Appropriate Hx Seizures: No Numbness or tingling in extremities: No Anesthesia Plan Anesthesia Risk discussed: Yes Anesthesia Plan: Verified ASA Class: III Anesthesia Type: MAC
[2025-09-10 10:02] VITALS: BP 150/97; PULSE 88; RESP 16; TEMP 36.2; O2SAT 94
[2025-09-10 10:12] VITALS: BP 162/97; PULSE 83; RESP 18; O2SAT 92
[2025-09-10 10:22] VITALS: BP 159/90; PULSE 84; RESP 18; O2SAT 95
[2025-09-10 10:32] VITALS: BP 152/86; PULSE 86; RESP 20; O2SAT 97
== END 2025-09-10 10:35 | disposition home or self-care (01) ==
PROVIDERS: PCP Nurse Practitioner Family; Visit Provider Internal Medicine Gastroenterology
PROC: 0DJD8ZZ Inspection of Lower Intestinal Tract, Via Natural or Artificial Opening Endoscopic (ICD-10-PCS; CPT 45378; principal; 2025-09-10 10:00)
DX: Z12.11 Encounter for screening for malignant neoplasm of colon (principal); K63.5 Polyp of colon; K57.30 Diverticulosis of large intestine without perforation or abscess without bleeding; K64.0 First degree hemorrhoids; K64.1 Second degree hemorrhoids; E11.40 Type 2 diabetes mellitus with diabetic neuropathy, unspecified; I11.0 Hypertensive heart disease with heart failure; I50.20 Unspecified systolic (congestive) heart failure; E78.5 Hyperlipidemia, unspecified; M19.90 Unspecified osteoarthritis, unspecified site; Z79.4 Long term (current) use of insulin; Z79.85 Long-term (current) use of injectable non-insulin antidiabetic drugs; Z88.8 Allergy status to other drugs, medicaments and biological substances; Z80.0 Family history of malignant neoplasm of digestive organs; Z86.0100 Personal history of colon polyps, unspecified
CPT/HCPCS: 45385; 82962; J2003; J2704; J7120

== ENCOUNTER 2025-09-12 08:00 | Outpatient (CLI) | payer OTHER, SELFPAY ==
[2025-09-13 10:13] LABS: Testosterone,Total 206 ng/dL (264-916)
== END 2025-09-12 23:59 | disposition home or self-care (01) ==
LOC: LAB 08:01
PROVIDERS: PCP Nurse Practitioner Family; Visit Provider Nurse Practitioner Family
DX: E29.1 Testicular hypofunction (principal); R79.89 Other specified abnormal findings of blood chemistry
CPT/HCPCS: 36415; 84403

== ENCOUNTER 2025-10-16 11:11 | Outpatient (CLI) | payer OTHER, SELFPAY ==
[2025-10-16 12:29] LABS: 25-OH Vitamin D, Total 43.3 ng/mL (30-100)
[2025-10-16 13:04] LABS: Cholesterol 224 mg/dl (140-200); HDL Cholesterol 39 mg/dl (40-60); Triglycerides 157 mg/dl (30-150)
[2025-10-16 13:18] LABS: Hemoglobin A1C 7.1 % (4.0-6.0)
[2025-10-16 13:53] LABS: Vitamin B12 231 pg/mL (239-931)
== END 2025-10-16 23:59 | disposition home or self-care (01) ==
LOC: LAB 11:12
PROVIDERS: PCP Nurse Practitioner Family; Visit Provider Nurse Practitioner Family
DX: E55.9 Vitamin D deficiency, unspecified (principal); I10 Essential (primary) hypertension; E53.8 Deficiency of other specified B group vitamins; E78.2 Mixed hyperlipidemia; E11.9 Type 2 diabetes mellitus without complications
CPT/HCPCS: 36415; 80061; 82306; 82607; 83036

== ENCOUNTER 2025-10-22 08:05 | Outpatient (CLI) | payer OTHER, SELFPAY ==
--- NOTE | 2025-10-22 08:00 | CA_ITS ---
APPROVED REPORT EXAM: Comprehensive 2D, Doppler, and color-flow Echocardiogram Deli Cook: Chio Perez RT(R) Ht: 6 ft 3 in Wt: 324lbs BSA: 2.69 BP: 150/84 mmHg Indications: cardiomyopathy, HTN, hyperlipidemia Echo Enhancing Agent Indication: Endocardial border delineation Agent(s) / Amount(s) Used: Definity 2 cc 2D Dimensions EF AP4 35.10 % GL Strain -3.2 % M-Mode Dimensions RVDd 3.24 cm (0.9-2.6) LA Diam 3.44 cm (1.9-4.0) LVDd 6.06 cm (3.5-5.7) LVDs 4.74 cm (3.5-5.7) IVSd 0.99 cm (0.6-1.1) PWd 0.94 cm (0.6-1.1) EF (Teich) 43.30% FS 21.80% EDV (Teich) 184.10 mL ESV (Teich) 104.40 mL LV Diastology E Decel Time 150 (160-240 msec) E/A Ratio 0.7 Mitral Valve MV E Max Nikko. 65.0 (40-130 cm/s) MV A Velocity 94.0 (40-130 cm/s) E/A Ratio 0.70 MV PHT 44.0 ms Left Ventricle The left ventricle is normal size. Left ventricular systolic function is mildly reduced. There is increased left ventricular wall thickness. IVSd 1.3 cm. There is mild global hypokinesis present. Grade 1 diastolic dysfunction is present. No left ventricle thrombus noted on this study. LVEF is 45% Right Ventricle The right ventricle is normal size. The right ventricular systolic function is normal. Atria The left atrium size is normal. The right atrium size is normal. There is no color Doppler evidence of interatrial shunt. Aortic Valve The aortic valve opens well. There is no hemodynamically significant aortic valvular stenosis. No aortic regurgitation is present. Mitral Valve The mitral valve is normal in structure. No evidence of mitral valve stenosis. Trace mitral regurgitation is present. Tricuspid Valve The tricuspid valve leaflets are thin and pliable. Trace tricuspid regurgitation. There is insufficient TR jet to estimate RVSP. Pulmonic Valve The pulmonary valve is grossly normal in structure. Trace pulmonic valve regurgitation is present. Great Vessels The aortic root is normal in size. IVC is normal in size and collapses >50% with inspiration. Pericardium There is no pericardial effusion. Other Information Study Quality: Technically Difficult Conclusion Mildly reduced LV systolic function (LVEF 45%). Increased LV wall thickness (IVSd 1.3 cm). No significant valvular stenosis or regurgitation. Electronically signed by : Ann Marie Montiel MD 10/29/2025 09:36:24
--- OUTSIDE RECORDS SUMMARY | 2025-10-22 08:10 | XMS_ITS | Clinical Summary ---
Author Organization [facility] Address [address] [place] [address] Care Team Providers Care Industrial Safety And Health Specialist Name Role Phone BarriosSilvia Vinod PAYNE Primary Care Provider [phone] Allergies Active Allergy Reactions Criticality Noted Date Comments Lisinopril Cough Low 06/15/2023 Medications Continuous Blood Gluc Sensor (BotanoCapyle Samson 3 Sensor) [facility] [place] DIRECTED TO TEST BLOOD GLUCOSE (CHANGE [...] Continuous Blood Gluc Transmit (Dexcom G6 transmitter) [facility] [place] DIRECTED TO TEST BLOOD GLUCOSE LEVEL [...] 2025 [facility]-Zoster Vaccines (1 of 2) 2025 [id number] Vaccine ( - season) 2025 07/23/2021, 12/11/2020, 11/12/2020 [facility]-Influenza Vaccine (#1) 2025 08/08/2023 [facility]-DTaP,Tdap,and Td Vaccine s (2 - Td or Tdap) 08/10/2033 08/10/2023 [facility]-Obesity Intervention Completed 024, 06/21/2023 HPV Vaccines (No Doses Required) Completed [facility]-HIB Vaccines Aged Out No longer e [...] patient's age to complete this topic Insurance [facility] Care Teams Industrial Safety And Health Specialist Relationship Specialty Start Date End Date Silvia Barrios, STAFF COUNSELOR [address] [place] [address] PCP - General 06/15/23
--- OUTSIDE RECORDS SUMMARY | 2025-10-22 08:10 | XMS_ITS | Encounter Summary ---
Author Organization [facility] Address [address] [place] [address] Care Team Providers Care Floor Person Name Role Phone Silvia Barrios APRN Primary Care Provider [phone] Encounter Details Date Type Department Care Team (Late st Contact Info) Description 06/18/2023 [facility] [address] [place] [address] Ara Heard APRN [address] [place] [id number] XOCHILT (obstructive sleep apnea) (Primary Dx) Social [...] (pediatric) documented in this encounter Care Teams Floor Person Relationship Specialty Start Date End Date Silvia Barrios APRN [address] [place] [address] PCP - General 06/15/23 documented as of this encounter
[2025-10-22] MEDS: DEFINITY US ECHO CONTRAST 2ML INJ 2 MG IV (08:37)
== END 2025-10-22 23:59 | disposition home or self-care (01) ==
LOC: RT 08:06
PROVIDERS: PCP Nurse Practitioner Family; Visit Provider Physician Assistant
DX: I42.8 Other cardiomyopathies (principal)
CPT/HCPCS: 93306; Q9957